=== PATIENT | female | born 1995 | race Caucasian/White ===

== ENCOUNTER 2022-01-20 12:25 | Emergency (ER) | payer MEDICAID, SELFPAY ==
--- NOTE | ~2022-01-20 | US_ITS ---
EXAMINATION: US PELVIS CLINICAL INFORMATION: Vaginal bleeding and pelvic pain COMPARISON: Pelvic ultrasound 03/16/2011 TECHNIQUE: Ultrasound of the pelvis is performed using both transabdominal and transvaginal transducers along with Doppler. Transvaginal imaging is performed due to inadequate visualization transabdominally. FINDINGS: Uterus: The uterus is anteverted and measures 9.3 x 3.8 x 4.9 cm. The double wall endometrial thickness is 6 mm. The uterus is smooth in contour and has normal myometrial echogenicity. No visible fibroid. Adnexa: Both ovaries are visualized. There is normal color flow to the adnexa. There is no ovarian torsion. There is no pelvic ascites or fluid collection. Right ovary measures 2.2 x 1.7 x 1.8 cm. Volume: 4.3 mL Left ovary measures 2.4 x 1.8 x 2 cm. Volume: 4.5 mL. US/US pelvic and transvaginal IMPRESSION: Normal pelvic ultrasound.
[2022-01-20 15:47] VITALS: BP 120/89; PULSE 69; RESP 18; TEMP 37; O2SAT 98; BMI 35.4
--- NOTE | 2022-01-20 17:03 | ED_ITS ---
HPI - Female Genitourinary General Chief complaint: Vaginal Bleeding Stated complaint: vaginal bleeding Time Seen by Provider: 01/20/22 16:55 Source: patient Mode of arrival: ambulatory Limitations: no limitations History of Present Illness HPI Narrative: 26-year-old female came in for evaluation of vaginal bleeding. Symptoms started since yesterday, patient did not have menstruation since her last January 2021, started to have her peroid since yesterday, patient claimed that she has been using multiple pads for heavy vaginal bleeding, patient feeling generalized weakness, no chest pain, no shortness of breath. Patient not sure if she could be or not. No abdominal or pelvic trauma. Related Data Allergies Allergy/AdvReac Type Severity Reaction Status Date / Time shrimp [SHRIMP] Allergy Intermediate FACIAL Verified 01/20/22 15:47 SWELLING Review of Systems Review of Systems: All other systems are reviewed and are negative Constitutional: Reports as per HPI and Reports no additional constitutional complaints Eyes: Reports as per HPI and Reports no additional eye complaints Reports system reviewed and no additional complaints, except as documented Cardiovascular: Reports as per HPI and Reports no additional cardiovascular complaints Respiratory: Reports as per HPI and Reports no additional respiratory complaints Gastrointestinal: Reports as per HPI and Reports no additional gastrointestinal complaints Genitourinary: Reports no additional female genitourinary complaints Musculoskeletal: Reports no additional musculoskeletal complaints Skin/Breast: Reports system reviewed and no additional complaints, except as docu Psychiatric: Reports no additional psychiatric complaints Endocrine: Reports no additional endocrine complaints Hematologic/Lymphatic: Reports no additional hematologic/lymphatic complaints Allergic/Immunologic: Reports no additional allergic/immunologic complaints Reports system reviewed and no additional complaints, except as documented and Reports Abnormal speech present [facility] Social History Social History Advance Directives: No Advance Directives Information Provided: No Physical Exam Vital Signs: Vital Signs: Last Vital Signs Temp 98.6 F 01/20/22 15:47 Pulse 79 01/20/22 19:03 Resp 16 01/20/22 18:55 BP 121/76 01/20/22 19:03 Pulse Ox 100 01/20/22 18:55 BMI result Body Mass Index 35.4 Vital signs have been reviewed as appeared to be correct. Blood pressure normal. Heart rate normal. Respiration rate normal. Temperature normal. Oxygen saturation normal. Appearance: Alert. Oriented X3. No acute distress. Head: Normal external exam. Normocephalic. Atraumatic. No Darden signs noted. No raccoon eyes noted Eyes: PERRLA. EOMI. Conjunctiva and sclera normal. Eyelids normal. ENT: TM's Normal. Pharynx normal. Uvula midline. Moist mucous membranes. No trismus noted. No drooling noted. No muffled voice noted. Neck: Normal inspection. Neck supple. FROM. No adenopathy. Thyroid Normal. No meningeal signs. No neck mass noted. CVS: Normal heart rate and rhythm. Heart sound normal. No murmurs noted. Pulses normal throughout. Respiratory: No respiratory distress. Painless inspiration. Breath sounds normal. No wheezes/rales/rhonchi noted. Chest nontender. No accessory muscle usage noted or decreased air movement noted. Abdomen: Soft and nontender. Bowel sounds normal in all 4 quadrants. No distention noted. No organomegaly noted. No visible injury noted. Pelvic exam: Normal genital inspection, no CMT, no adnexal mass, 5 cc of blood in the vault, no active bleeding or oozing blood. Back: No CVA tenderness. Full range of motion noted. Skin: Skin warm and dry. Normal skin color. Normal skin turgor. No rashes/lesions/lacerations noted. Extremities: No lower extremity edema. Extremities exhibit normal range of motion. Extremities nontender. Neuro: Oriented X 3. Cranial nerve exam: II-XII are grossly intact No motor deficit. No sensory deficit. Reflexes normal. Course Course Course Narrative: Assessment and plan. 26-year-old female came in with heavy menstruation, patient hemodynamically stable, stable hemoglobin, no orthostatic hypotension. ruled out with negative HCG, pelvic ultrasound is unrevealing. Patient was reassured, instructed to drink plenty of fluids, and follow up with her OBGYN. [facility] - Female Genitourinary Lab Data Attestation: I reviewed the patient's lab results. Result diagrams: 01/20/22 18:14 01/20/22 18:14 Labs: Lab Results 01/20/22 01/20/22 01/20/22 Range/Units 17:04 17:04 18:14 WBC 7.3 (4.8-10.8) X10*3/uL RBC 4.35 (4.20-5.50) X10*6/uL Hgb 12.9 (12.0-16.0) g/dl Hct 39.3 (37.0-47.0) % MCV 90.3 (80.0-98.0) fL MCH 29.7 (27.0-33.0) pg MCHC 32.8 (31.0-35.0) g/dl RDW 13.2 (11.0-16.0) % Plt Count 326 (160-400) X10*3/uL MPV 10.2 (9.4-12.3) fL Immature Gran % (Auto) 0.3 (0.0-0.4) % Neut % (Auto) 56.3 (45-73) % Lymph % (Auto) 32.7 (20-40) % [place] % (Auto) 9.2 (2-11) % Eos % (Auto) 1.2 (0-4) % Baso % (Auto) 0.3 (0-2) % Lymph # (Auto) 2.4 (1.2-4.9) X10*3/uL [place] # (Auto) 0.7 (0.1-1.2) X10*3/uL Eos # (Auto) 0.1 (0.0-0.4) X10*3/uL Baso # (Auto) 0.0 (0.0-0.2) X10*3/uL Abs Immat Gran (auto) 0.02 (0.00-0.03) X10*3/uL Absolute Neuts (auto) 4.1 (2.0-8.3) x10*3/uL Absolute Nucleated RBC 0.000 (0.0-0.012) X10*3/uL Nucleated RBC % (auto) 0.0 (0.0-0.2) /100WBC Sodium (135-145) mmol/L Potassium (3.3-5.1) mmol/L Chloride (96-108) mmol/L Carbon Dioxide (22-29) mmol/L Anion Gap (12-20) BUN (9-16) mg/dL Creatinine (0.5-1.4) mg/dL Estim Creat Clear Calc Estimated GFR Random Glucose (60-115) mg/dL Calcium (8.4-10.2) mg/dL Total Bilirubin (0.0-1.0) mg/dL AST (5-31) U/L ALT (0-31) U/L Alkaline Phosphatase (39-117) U/L Total Protein (6.5-8.0) g/dL Albumin (3.5-5.0) g/dL Beta HCG, Quant mIU/mL Urine Color DK YELLOW Urine Appearance HAZY Urine pH 6.0 (5.0-8.0) Ur Specific [place] >= 1.030 H (1.005-1.025) Urine Protein NEG (NEG-TRACE) MG/DL Urine Glucose (UA) NEG (NEG) MG/DL Urine Ketones NEG (NEG) MG/DL Urine Blood 3+ H (NEG) Urine Nitrite NEG (NEG) Ur Leukocyte Esterase NEG (NEG) Urine RBC 15-29 H (0) /HPF Urine WBC 0-2 (0-4) /HPF Ur Squamous Epith Cells 1+ /LPF Amorphous Sediment 1+ /LPF Urine Bacteria NONE /LPF Urine Mucus 2+ /LPF Urine Test NEGATIVE (NEGATIVE) 01/20/22 Range/Units 18:14 WBC (4.8-10.8) X10*3/uL RBC (4.20-5.50) X10*6/uL Hgb (12.0-16.0) g/dl Hct (37.0-47.0) % MCV (80.0-98.0) fL MCH (27.0-33.0) pg MCHC (31.0-35.0) g/dl RDW (11.0-16.0) % Plt Count (160-400) X10*3/uL MPV (9.4-12.3) fL Immature Gran % (Auto) (0.0-0.4) % Neut % (Auto) (45-73) % Lymph % (Auto) (20-40) % [place] % (Auto) (2-11) % Eos % (Auto) (0-4) % Baso % (Auto) (0-2) % Lymph # (Auto) (1.2-4.9) X10*3/uL [place] # (Auto) (0.1-1.2) X10*3/uL Eos # (Auto) (0.0-0.4) X10*3/uL Baso # (Auto) (0.0-0.2) X10*3/uL Abs Immat Gran (auto) (0.00-0.03) X10*3/uL Absolute Neuts (auto) (2.0-8.3) x10*3/uL Absolute Nucleated RBC (0.0-0.012) X10*3/uL Nucleated RBC % (auto) (0.0-0.2) /100WBC Sodium 138 (135-145) mmol/L Potassium 4.0 (3.3-5.1) mmol/L Chloride 105 (96-108) mmol/L Carbon Dioxide 24 (22-29) mmol/L Anion Gap 13 (12-20) BUN 7 L (9-16) mg/dL Creatinine 0.75 (0.5-1.4) mg/dL Estim Creat Clear Calc 123.6 Estimated GFR > 60 Random Glucose 80 (60-115) mg/dL Calcium 9.0 (8.4-10.2) mg/dL Total Bilirubin 0.5 (0.0-1.0) mg/dL AST 30 (5-31) U/L ALT 36 H (0-31) U/L Alkaline Phosphatase 92 (39-117) U/L Total Protein 7.7 (6.5-8.0) g/dL Albumin 4.2 (3.5-5.0) g/dL Beta HCG, Quant < 2 mIU/mL Urine Color Urine Appearance Urine pH (5.0-8.0) Ur Specific [place] (1.005-1.025) Urine Protein (NEG-TRACE) MG/DL Urine Glucose (UA) (NEG) MG/DL Urine Ketones (NEG) MG/DL Urine Blood (NEG) Urine Nitrite (NEG) Ur Leukocyte Esterase (NEG) Urine RBC (0) /HPF Urine WBC (0-4) /HPF Ur Squamous Epith Cells /LPF Amorphous Sediment /LPF Urine Bacteria /LPF Urine Mucus /LPF Urine Test (NEGATIVE) Imaging Data Pelvic ultrasound: Attestation: I personally reviewed and interpreted this imaging study as follows: Radiologist's impression: Normal pelvic ultrasound. Discharge Plan Discharge Clinical Impression: Menometrorrhagia Patient Disposition: Home, Self-Care Instructions: Menorrhagia (ED) Additional Instructions: Drink plenty of fluid, seek immediate medical attention for dizziness, feeling passing out, increased vaginal bleeding more than 10 pads a day or 3 pads an hour. Referrals: [place],[facility] [Primary Care Provider] - 2 days
[2022-01-20 17:11] LABS: Appearance Urine HAZY; Color Urine DK YELLOW; Glucose Urine UA NEG (NEG); Leukocyte Esterase Urine NEG (NEG); Nitrite Urine NEG (NEG); Specific Gravity - Urine >= 1.030 (1.005-1.025); UACC Culture Trigger NO; Urine Blood 3+ (NEG); Urine Ketones NEG (NEG); Urine Protein NEG (NEG-TRACE)
[2022-01-20 17:13] LABS: UPreg QC Valid YES; Urine Pregnancy NEGATIVE (NEGATIVE)
[2022-01-20 17:27] LABS: Amorphous Sediment Urine 1+ /LPF; Mucus Urine 2+ /LPF; Squamous Epithelial Cell Urine 1+ /LPF; WBC Urine 0-2 /HPF (0-4)
[2022-01-20] MEDS: 0.9 % Sodium Chloride 1,000 ML 999 ML IV (18:35)
[2022-01-20 18:37] LABS: MANUAL DIFF FLAG NO
[2022-01-20 18:41] LABS: Basophils Percent Auto 0.3 % (0-2); Eosinophils Absolute Auto 0.1 X10*3/uL (0.0-0.4); Eosinophils Percent Auto 1.2 % (0-4); Hematocrit 39.3 % (37.0-47.0); Hemoglobin 12.9 g/dl (12.0-16.0); Imm Gran Abs Auto 0.02 X10*3/uL (0.00-0.03); Imm Gran Pct Auto 0.3 % (0.0-0.4); Lymphocytes Absolute Auto 2.4 X10*3/uL (1.2-4.9); Lymphocytes Percent Auto 32.7 % (20-40); Mean Corpuscular HGB Conc 32.8 g/dl (31.0-35.0); Mean Corpuscular Hemoglobin 29.7 pg (27.0-33.0); Mean Corpuscular Volume 90.3 fL (80.0-98.0); Mean Platelet Volume 10.2 fL (9.4-12.3); Monocytes Absolute Auto 0.7 X10*3/uL (0.1-1.2); Monocytes Percent Auto 9.2 % (2-11); Neutrophils Absolute Auto 4.1 x10*3/uL (2.0-8.3); Neutrophils Percent Auto 56.3 % (45-73); Platelet Count 326 X10*3/uL (160-400); Red Blood Count 4.35 X10*6/uL (4.20-5.50); Red Cell Distribution Width 13.2 % (11.0-16.0); White Blood Count 7.3 X10*3/uL (4.8-10.8)
[2022-01-20 18:53] LABS: Alanine Aminotransferase 36 U/L (0-31); Albumin Level 4.2 g/dL (3.5-5.0); Alkaline Phosphatase 92 U/L (39-117); Anion Gap 13 (12-20); Aspartate Amino Transferase 30 U/L (5-31); Bilirubin Total 0.5 mg/dL (0.0-1.0); Blood Urea Nitrogen 7 mg/dL (9-16); Carbon Dioxide 24 mmol/L (22-29); Chloride 105 mmol/L (96-108); Creatinine Clr Calc Pharmacy 123.6; Estimated Glomerular Filt Rate > 60; Glucose Random 80 mg/dL (60-115); Sodium 138 mmol/L (135-145); Total Protein 7.7 g/dL (6.5-8.0)
[2022-01-20 18:55] VITALS: BP 116/70; PULSE 76; RESP 16; O2SAT 100
[2022-01-20 19:00] LABS: HCG Quantitative < 2 mIU/mL
[2022-01-20 19:01] VITALS: BP 116/70; PULSE 76
[2022-01-20 19:02] VITALS: BP 123/84; PULSE 82
[2022-01-20 19:03] VITALS: BP 121/76; PULSE 79
[2022-01-20 19:40] VITALS: BP 109/70; PULSE 75; RESP 17; O2SAT 99
== END 2022-01-20 19:57 | disposition home or self-care (01) ==
PROVIDERS: Emergency Provider Emergency Medicine
DX: N92.1 Excessive and frequent menstruation with irregular cycle (principal); N93.9 Abnormal uterine and vaginal bleeding, unspecified; Z79.899 Other long term (current) drug therapy
CPT/HCPCS: 36415; 76830; 76856; 80053; 81001; 81025; 84702; 85025; 96360; 99284

== ENCOUNTER 2022-02-05 06:27 | Emergency (ER) | payer MEDICAID, SELFPAY ==
[2022-02-05 06:31] VITALS: BP 121/86; PULSE 120; RESP 18; TEMP 37.4; O2SAT 96; BMI 34.7
[2022-02-05 07:04] VITALS: BP 116/77; PULSE 109; RESP 14; O2SAT 96
--- NOTE | 2022-02-05 07:47 | ED_ITS ---
HPI - General Adult General Chief complaint: General Medical Stated complaint: sore throat, amoxicilin prescribed not working Time Seen by Provider: 02/05/22 07:46 Source: patient Mode of arrival: ambulatory Limitations: no limitations History of Present Illness HPI narrative: 26 years old female came in for evaluation of sore throat. Patient's symptoms started 3 days ago with sore throat, chills and fever, wo rsening for the past 3 days, patient is been having difficulty swallowing, no voice change. Patient was evaluated and had HHC yesterday and was given amoxicillin. No sick contacts, no recent travel. No abdominal pain. Patient declined any chance of being today. Related Data Previous Rx's Medication Instructions Recorded prednisone 20 mg tablet 20 mg PO BID #6 tab 02/05/22 Allergies Allergy/AdvReac Type Severity Reaction Status Date / Time shrimp [SHRIMP] Allergy Intermediate FACIAL Verified 01/20/22 15:47 SWELLING Review of Systems Review of Systems: All other systems are reviewed and are negative Constitutional: Reports as per HPI and Reports no additional constitutional complaints Eyes: Reports as per HPI and Reports no additional eye complaints Reports system reviewed and no additional complaints, except as documented Cardiovascular: Reports as per HPI and Reports no additional cardiovascular complaints Respiratory: Reports as per HPI and Reports no additional respiratory complaints Gastrointestinal: Reports as per HPI and Reports no additional gastrointestinal complaints Genitourinary: Reports no additional female genitourinary complaints Musculoskeletal: Reports no additional musculoskeletal complaints Skin/Breast: Reports system reviewed and no additional complaints, except as docu Psychiatric: Reports no additional psychiatric complaints Endocrine: Reports no additional endocrine complaints Hematologic/Lymphatic: Reports no additional hematologic/lymphatic complaints Allergic/Immunologic: Reports no additional allergic/immunologic complaints Reports system reviewed and no additional complaints, except as documented and Reports Abnormal speech present [facility] Social History Social History Alcohol intake: current Alcohol intake frequency: holidays/special occasions only Patient Tobacco Use Status: Never used Tobacco Use of substances other than those prescribed or required for medical reasons: No Advance Directives: No Advance Directives Information Provided: Yes Patient : No Physical Exam ED Vital Signs: Vital Signs - 24 hr 02/05/22 06:31 02/05/22 07:04 02/05/22 11:26 Temperature 99.3 F Pulse Rate 120 H 109 H 91 Respiratory Rate 18 14 14 Blood Pressure 121/86 116/77 110/68 Pulse Oximetry 96 96 95 02/05/22 12:24 Temperature Pulse Rate 88 Respiratory Rate 14 Blood Pressure 119/72 Pulse Oximetry 97 BMI result Body Mass Index 34.7 vital signs have been reviewed as appeared to be correct. Blood pressure normal. Heart rate Tachycardiac. Respiration rate normal. Temperature normal. Oxygen saturation normal. Appearance: Alert. Oriented X3. No acute distress. Head: Normal external exam. Normocephalic. Atraumatic. No Darden signs noted. No raccoon eyes noted Eyes: PERRLA. EOMI. Conjunctiva and sclera normal. Eyelids normal. ENT: TM's Normal. Pharynx with erythema, whitish exudate on both tonsils. Uvula midline. Moist mucous membranes. No trismus noted. No drooling noted. No muffled voice noted. Neck: Normal inspection. Neck supple. FROM. No adenopathy. Thyroid Normal. No meningeal signs. No neck mass noted. CVS: Normal heart rate and rhythm. Heart sound normal. No murmurs noted. Pulses normal throughout. Respiratory: No respiratory distress. Painless inspiration. Breath sounds normal. No wheezes/rales/rhonchi noted. Chest nontender. No accessory muscle usage noted or decreased air movement noted. Abdomen: Soft and nontender. Bowel sounds normal in all 4 quadrants. No distention noted. No organomegaly noted. No visible injury noted. Back: No CVA tenderness. Full range of motion noted. Skin: Skin warm and dry. Normal skin color. Normal skin turgor. No rashes/lesions/lacerations noted. Extremities: No lower extremity edema. Extremities exhibit normal range of motion. Extremities nontender. Neuro: Oriented X 3. Cranial nerve exam: II-XII are grossly intact No motor deficit. No sensory deficit. Reflexes normal. Course Course Course Narrative: 26-year-old female came in with sore throat and swelling, patient tested negative for flu/RSV/COVID/mononucleosis/strep pharyngitis. Patient feels better after was given ibuprofen and prednisone. Will start the patient on prednisone for 3 days, also continue with amoxicillin. Medical Decision Making Lab Data Lab results reviewed: Yes I reviewed the patient's lab results. Labs: Lab Results 02/05/22 02/05/22 02/05/22 Range/Units 08:03 08:03 08:03 Monoscreen Negative (Negative) Influenza Type A (PCR) NEGATIVE (Negative) Influenza Type B (PCR) NEGATIVE (Negative) RSV RNA Qual (PCR) NEGATIVE (Negative) SARS-CoV-2 RNA (RT-PCR) NEGATIVE (Negative) S. pyogenes GrpA JIMMY Cancelled 02/05/22 Range/Units 11:50 Monoscreen (Negative) Influenza Type A (PCR) (Negative) Influenza Type B (PCR) (Negative) RSV RNA Qual (PCR) (Negative) SARS-CoV-2 RNA (RT-PCR) (Negative) S. pyogenes GrpA JIMMY Negative Discharge Plan Discharge Clinical Impression: Pharyngitis Patient Disposition: Home, Self-Care Instructions: Pharyngitis (ED) Prescriptions: New prednisone 20 mg tablet 20 mg PO BID Qty: 6 0RF Referrals: [facility] [Primary Care Provider] - 2 days Stand Alone Forms: Work/School Release
[2022-02-05] MEDS: predniSONE 20 MG TABLET 60 MG PO (07:59)
[2022-02-05] MEDS: Ibuprofen 600 MG TABLET PO (07:59)
--- NOTE | 2022-02-05 08:11 | PC.NURSE ---
pt reports 10/10 throat pain. tonsils 4+ touching another with white exudate present. pt reports difficulty swallowing but able to take pills po.
[2022-02-05 09:59] LABS: Influenza A PCR NEGATIVE (Negative); Influenza B PCR NEGATIVE (Negative); Resp Syncy Virus RNA Qual PCR NEGATIVE (Negative); SARS COV2 PCR INHOUSE NEGATIVE (Negative)
[2022-02-05 10:33] LABS: Monotest Negative (Negative)
[2022-02-05 11:26] VITALS: BP 110/68; PULSE 91; RESP 14; O2SAT 95
[2022-02-05 12:24] VITALS: BP 119/72; PULSE 88; RESP 14; O2SAT 97
[2022-02-05 12:31] LABS: Strep A Nucleic Acid Negative (Negative)
== END 2022-02-05 13:38 | disposition home or self-care (01) ==
PROVIDERS: Emergency Provider Emergency Medicine
DX: J02.9 Acute pharyngitis, unspecified (principal); Z20.822 Contact with and (suspected) exposure to COVID-19; F12.90 Cannabis use, unspecified, uncomplicated
CPT/HCPCS: 0241U; 36415; 86308; 87651; 99283; 99284

== ENCOUNTER 2022-02-07 23:05 | Emergency (ER) | payer MEDICAID, SELFPAY ==
--- NOTE | ~2022-02-07 | CT_ITS ---
EXAMINATION: CT SOFT TISSUE NECK WITH CONTRAST CLINICAL INFORMATION: Sore throat. Rule out peritonsillar abscess. COMPARISON: None TECHNIQUE: Following the intravenous administration of 70 mL of Omnipaque 350 intravenous contrast, helical imaging was performed in the axial plane with generation of coronal and sagittal reformatted images. This CT examination was performed using dose optimization techniques as appropriate, variously including the following: *Automated exposure control *Adjustment of mA and/or kV according to patient size (this includes techniques or standardized protocols for targeted exams where dose is matched to indication/reason for exam; i.e. extremities or head) *Use of iterative reconstruction technique DLP: 644 mGy-cm FINDINGS: Prominence of the bilateral palatine tonsils. The airway remains patent. No associated fluid collection. There are prominent cervical lymph nodes bilaterally. For instance there is a node along the left jugular chain measuring 2.3 cm on series 2 image 50. There is a right jugular chain node measuring 2.2 cm on image 48. The parotid glands are homogeneous in attenuation. The submandibular glands are normal. No contour abnormality or pathologic enhancement is seen within the oral cavity or pharyngeal mucosal space. The laryngeal structures are normal. The parapharyngeal fat is preserved. The carotid sheath vasculature opacify normally. No extra mucosal soft tissue mass or fluid collection is seen. No retropharyngeal fluid collection is seen. The thyroid gland is normal. The superior mediastinum is unremarkable. The lung apices are clear. There is a prominent mucous retention cyst of the left maxillary sinus. The mastoid air cells and visualized portions of the paranasal sinuses are otherwise well-aerated. The temporomandibular joints are normal. No periapical disease is identified. No osseous abnormalities are seen. The imaged portions of the brain parenchyma are unremarkable. CT/CT soft tissue neck w con IMPRESSION: Bilateral tonsillar prominence. Cervical lymphadenopathy which is likely reactive. No fluid collection. Patent airway.
[2022-02-07 23:14] VITALS: BP 120/77; PULSE 109; RESP 20; TEMP 39.2; O2SAT 97; BMI 33.6
[2022-02-07] MEDS: Acetaminophen 325 MG TABLET 650 MG PO (23:23)
--- NOTE | 2022-02-07 23:59 | ED.URI ---
HPI - URI/Sore Throat General Chief Complaint: Upper Respiratory Symptoms Stated Complaint: sore throat; ear pain Time Seen by Provider: 02/07/22 23:37 Source: patient Mode of arrival: ambulatory Limitations: no limitations History of Present Illness HPI Narrative: This is a 22 were year old female no significant medical history presenting to the emergency department with 4 days of sore throat, fevers, chills, congestion. Patient is currently on amoxicillin which she started 5 days ago which was prescribed to her by her PCP. She is also taking prednisone. She tells me that despite these medications her symptoms have been worsening. And says she feels horrible. She denies chest pain, shortness of breath, nausea, vomiting, abdominal pain, headache, dizziness, weakness, vision changes, voice changes. Patient has been eating and drinking well. Denies recent sick contacts. MD elicited complaint: fever and sore throat Onset (ago): day(s) (4) Consistency: constant Severity: moderate Able to tolerate fluids by mouth: Yes Exacerbating factors: nothing Relieving factors: nothing Context: sick contacts Associated symptoms: fever and chills Treatments prior to arrival: none Related Data Previous Rx's Medication Instructions Recorded prednisone 20 mg tablet 20 mg PO BID #6 tab 02/05/22 azithromycin 250 mg tablet 250 mg PO DAILY 4 Days #4 tab 02/08/22 (Zithromax) cefuroxime axetil 500 mg tablet 500 mg PO BID 10 Days #20 tab 02/08/22 oxycodone 5 mg capsule 5 mg PO BID PRN #8 cap 02/08/22 Allergies Allergy/AdvReac Type Severity Reaction Status Date / Time shrimp [SHRIMP] Allergy Intermediate FACIAL Verified 01/20/22 15:47 SWELLING Review of Systems Review of Systems: Constitutional : No Weight loss, + Fever, + Chills, + Fatigue, No Malaise ENT/Mouth : + sore throat, No Rhinorrhea Eyes: No Eye Pain, No Swelling, No Redness Cardiovascular : No Chest Pain, No SOB, No Dyspnea on Exertion, No Orthopnea, No Edema, No Palpitations Respiratory : No Cough, No Sputum, No Wheezing Gastrointestinal : No Nausea, No Vomiting, No Diarrhea, No Constipation, No abdominal Pain, No Hematochezia, No Melena Genitourinary : No Dysuria, No Urinary Frequency, No Hematuria, Musculoskeletal : No joint pain, No Myalgias, No Joint Swelling Skin : No Skin Lesions, No rash Neuro : No Weakness, No Numbness, No Dizziness, No Headache Psych : No Anxiety/Panic, No Depression All other systems reviewed and are negative Yes all other systems are reviewed and are negative [facility] Past Medical History Attestation statement: The following information was validated with the patient. Source: old records reviewed and nursing notes reviewed Social History Social History Alcohol intake: current Alcohol intake frequency: holidays/special occasions only Patient Tobacco Use Status: Never used Tobacco Advance Directives: No Physical Exam Vital Signs: Vital Signs: Last Vital Signs Temp 100.2 F 02/08/22 02:09 Pulse 85 02/08/22 02:09 Resp 12 02/08/22 02:09 BP 113/70 02/08/22 02:09 Pulse Ox 96 02/08/22 02:09 BMI result Body Mass Index 33.6 Patient noted to be tachycardic and febrile. Appearance: Alert.? Oriented X3.? No acute distress.? Head: Normocephalic, atraumatic, no step-offs or deformities Eyes: Pupils equal, round and reactive to light.? ENT: + bilateral tonsils erythematous, edematous with exudates. Patient controlling secretions with no muffled voice. Neck: Normal inspection.? Neck supple.? CVS: Normal heart rate and rhythm.? Pulses normal.? Respiratory: No respiratory distress.? Breath sounds normal.? Abdomen: Soft and nontender.? Skin: Skin warm and dry.? Normal skin color.? Normal skin turgor.? Extremities: No lower extremity edema.? No calf ttp. 5/5 strength to bilateral upper and lower extremities Back: No midline tenderness, no C-spine tenderness, full range of motion, no CVA tenderness bilaterally Neuro: Oriented X 3.? No motor deficit.? No sensory deficit. CN 2-12 intact Course Course Course Narrative: I discussed this case w/ . Reevaluation(s) Reevaluation #1: Patient's CBC appears to be around baseline. Patient's potassium is low at 2.9 she will be given 40 of oral potassium and 10 of IV. Flu, COVID/mono negative. Strep negative. Patient will be given Decadron ceftriaxone, Toradol. She will be discharged home with Ceftin and Zithromax. I have given her follow-up with ENT. Advised her to return with new or worsening symptoms. Comfortable w/ discharge. Upon discharge patient is speaking in full sentences, controlling secretions well appears to be no distress. Vital signs stable saturating well on room air. She will follow up with PCP and ent Time: 02:05 MDM - URI/Sore Throat MDM Narrative Medical decision making narrative: 0004 26 yo f presents with sore throat, fevers, chills, malaise, fatigue, congestion x4 days worsening. Patient is currently on amoxicillin and prednisone with little to no relief. Physical exam with exudates, edema and erythema to bilateral tonsils. Plan at this time is flu/COVID/mono/strep. She was given Tylenol for her fever. I will rule out be colitis, peritonsillar abscess, strep pharyngitis. Medical Records Attestation: I reviewed the patient's medical records. Lab Data Attestation: I reviewed the patient's lab results. Result diagrams: 02/08/22 00:18 02/08/22 00:18 Labs: Lab Results 02/08/22 02/08/22 02/08/22 Range/Units 00:18 00:18 00:18 WBC (4.8-10.8) X10*3/uL RBC (4.20-5.50) X10*6/uL Hgb (12.0-16.0) g/dl Hct (37.0-47.0) % MCV (80.0-98.0) fL MCH (27.0-33.0) pg MCHC (31.0-35.0) g/dl RDW (11.0-16.0) % Plt Count (160-400) X10*3/uL MPV (9.4-12.3) fL Immature Gran % (Auto) (0.0-0.4) % Neut % (Auto) (45-73) % Lymph % (Auto) (20-40) % [place] % (Auto) (2-11) % Eos % (Auto) (0-4) % Baso % (Auto) (0-2) % Lymph # (Auto) (1.2-4.9) X10*3/uL [place] # (Auto) (0.1-1.2) X10*3/uL Eos # (Auto) (0.0-0.4) X10*3/uL Baso # (Auto) (0.0-0.2) X10*3/uL Abs Immat Gran (auto) (0.00-0.03) X10*3/uL Absolute Neuts (auto) (2.0-8.3) x10*3/uL Absolute Nucleated RBC (0.0-0.012) X10*3/uL Nucleated RBC % (auto) (0.0-0.2) /100WBC Smear Tech's Comments Sodium (135-145) mmol/L Potassium (3.3-5.1) mmol/L Chloride (96-108) mmol/L Carbon Dioxide (22-29) mmol/L Anion Gap (12-20) BUN (9-16) mg/dL Creatinine (0.5-1.4) mg/dL Estim Creat Clear Calc Estimated GFR Random Glucose (60-115) mg/dL Calcium (8.4-10.2) mg/dL COVID-19 (ANDI) Negative (Negative) COVID-19 Clin Com See Note Monoscreen (Negative) Influenza Type A (JIMMY) Negative (Negative) Influenza Type B (JIMMY) Negative (Negative) Influenza A & B Note See Note S. pyogenes GrpA JIMMY Negative (Negative) 02/08/22 02/08/22 02/08/22 Range/Units 00:18 00:18 00:18 WBC 10.2 (4.8-10.8) X10*3/uL RBC 3.78 L (4.20-5.50) X10*6/uL Hgb 11.2 L (12.0-16.0) g/dl Hct 33.9 L (37.0-47.0) % MCV 89.7 (80.0-98.0) fL MCH 29.6 (27.0-33.0) pg MCHC 33.0 (31.0-35.0) g/dl RDW 14.5 (11.0-16.0) % Plt Count 286 (160-400) X10*3/uL MPV 9.4 (9.4-12.3) fL Immature Gran % (Auto) 0.7 H (0.0-0.4) % Neut % (Auto) 73.9 H (45-73) % Lymph % (Auto) 15.3 L (20-40) % [place] % (Auto) 10.0 (2-11) % Eos % (Auto) 0.0 (0-4) % Baso % (Auto) 0.1 (0-2) % Lymph # (Auto) 1.6 (1.2-4.9) X10*3/uL [place] # (Auto) 1.0 (0.1-1.2) X10*3/uL Eos # (Auto) 0.0 (0.0-0.4) X10*3/uL Baso # (Auto) 0.0 (0.0-0.2) X10*3/uL Abs Immat Gran (auto) 0.07 H (0.00-0.03) X10*3/uL Absolute Neuts (auto) 7.6 (2.0-8.3) x10*3/uL Absolute Nucleated RBC 0.000 (0.0-0.012) X10*3/uL Nucleated RBC % (auto) 0.0 (0.0-0.2) /100WBC Smear Tech's Comments VERIFIED Sodium 137 (135-145) mmol/L Potassium 2.9 L D (3.3-5.1) mmol/L Chloride 101 (96-108) mmol/L Carbon Dioxide 24 (22-29) mmol/L Anion Gap 15 (12-20) BUN 11 D (9-16) mg/dL Creatinine 0.83 (0.5-1.4) mg/dL Estim Creat Clear Calc 108.7 Estimated GFR > 60 Random Glucose 99 (60-115) mg/dL Calcium 8.5 (8.4-10.2) mg/dL COVID-19 (ANDI) (Negative) COVID-19 Clin Com Monoscreen Negative (Negative) Influenza Type A (JIMMY) (Negative) Influenza Type B (JIMMY) (Negative) Influenza A & B Note S. pyogenes GrpA JIMMY (Negative) Critical Care Time Critical Care Time Critical Care Time: No Discharge Plan Discharge Clinical Impression: Acute bacterial tonsillitis, Hypokalemia Patient Disposition: Home, Self-Care Instructions: Tonsillitis (ED) Additional Instructions: Take your medications as prescribed. If you were prescribed antibiotics today, it is important that you take your medication to their entirety, do not skip any doses, do not finish them early. Follow-up with your primary care provider this week. Follow-up with ENT /ears nose and throat as soon as possible. Return to the emergency department with new or worsening symptoms. Such as fevers, chills, chest pain, shortness of breath, nausea, vomiting, dizziness, headache, vision changes, lethargy In case of emergency call 911 To note, your potassium was noted to be low we gave you potassium here today. Please follow-up within the next 2-3 days with your primary care provider for repeat labs. Prescriptions: New cefuroxime axetil 500 mg tablet 500 mg PO BID 10 Days Qty: 20 0RF azithromycin [Zithromax] 250 mg tablet 250 mg PO DAILY 4 Days Qty: 4 0RF Rx Instructions: start on day 2 of therapy oxycodone 5 mg capsule 5 mg PO BID PRN (Reason: pain) Qty: 8 0RF Rx Instructions: Patient can partially filled prescription upon request. No Action prednisone 20 mg tablet 20 mg PO BID Qty: 6 0RF Referrals: [facility] [Primary Care Provider] - 2 days Norberto Henderson [Physician] - 3 days Stand Alone Forms: Work/School Release
[2022-02-08 00:20] VITALS: BP 128/81; PULSE 89; RESP 14; TEMP 38.7; O2SAT 94
[2022-02-08 00:29] LABS: Basophils Percent Auto 0.1 % (0-2); Hematocrit 33.9 % (37.0-47.0); Hemoglobin 11.2 g/dl (12.0-16.0); Imm Gran Abs Auto 0.07 X10*3/uL (0.00-0.03); Imm Gran Pct Auto 0.7 % (0.0-0.4); Lymphocytes Absolute Auto 1.6 X10*3/uL (1.2-4.9); Lymphocytes Percent Auto 15.3 % (20-40); MANUAL DIFF FLAG SCAN; Mean Corpuscular Hemoglobin 29.6 pg (27.0-33.0); Mean Corpuscular Volume 89.7 fL (80.0-98.0); Mean Platelet Volume 9.4 fL (9.4-12.3); Neutrophils Absolute Auto 7.6 x10*3/uL (2.0-8.3); Neutrophils Percent Auto 73.9 % (45-73); Platelet Count 286 X10*3/uL (160-400); Red Blood Count 3.78 X10*6/uL (4.20-5.50); Red Cell Distribution Width 14.5 % (11.0-16.0); SCAN SMEAR FLAG 1; White Blood Count 10.2 X10*3/uL (4.8-10.8)
[2022-02-08 00:40] LABS: IDNOW Serial# 08D9AD1C; Monotest Negative (Negative); Strep A Nucleic Acid Negative (Negative)
[2022-02-08 00:45] LABS: Influenza A Negative (Negative); Influenza B2 Negative (Negative)
[2022-02-08 00:48] LABS: SLIDE REVIEW VERIFIED
[2022-02-08 00:51] LABS: Anion Gap 15 (12-20); Blood Urea Nitrogen 11 mg/dL (9-16); COVID-19 Test Negative (Negative); Calcium 8.5 mg/dL (8.4-10.2); Carbon Dioxide 24 mmol/L (22-29); Chloride 101 mmol/L (96-108); Creatinine Clr Calc Pharmacy 108.7; Estimated Glomerular Filt Rate > 60; Glucose Random 99 mg/dL (60-115); IDNOW Serial# 16C4AD1C; Potassium 2.9 mmol/L (3.3-5.1); Sodium 137 mmol/L (135-145)
[2022-02-08] MEDS: iohexoL 350 MG/ML 100 ML INFUS..BTL 60 ML IV (01:21)
[2022-02-08 02:09] VITALS: BP 113/70; PULSE 85; RESP 12; TEMP 37.9; O2SAT 96
[2022-02-08] MEDS: cefTRIAXone sodium 1 GM in 0.9 % Sodium Chloride 50 ML IV (02:33)
[2022-02-08] MEDS: dexAMETHasone sod phosphate 4 MG/ML VIAL 6 MG IVPUSH (02:36)
[2022-02-08] MEDS: Ketorolac Tromethamine 15 MG/ML VIAL 30 MG IVPUSH (02:40)
[2022-02-08] MEDS: Azithromycin 500 MG TABLET PO (02:42)
[2022-02-08] MEDS: Potassium Chloride ER 20 MEQ TAB.ER.PRT 40 MEQ PO (02:42)
[2022-02-08] MEDS: 0.9 % Sodium Chloride 1,000 ML 999 ML IV (03:17)
[2022-02-08] MEDS: Potassium Chloride/H20 10 MEQ/100 ML PIGGYBACK 100 MEQ IV (03:17)
== END 2022-02-08 04:40 | disposition home or self-care (01) ==
PROVIDERS: Physician Assistant; Emergency Provider Internal Medicine
DX: J02.8 Acute pharyngitis due to other specified organisms (principal); B96.89 Other specified bacterial agents as the cause of diseases classified elsewhere; R05.9 Cough, unspecified; Z79.899 Other long term (current) drug therapy; Z20.822 Contact with and (suspected) exposure to COVID-19
CPT/HCPCS: 36415; 70491; 80048; 85025; 86308; 87502; 87635; 87651; 96365; 96366; 96374; 96375; 96376; 99285; J0696; J1100; J1885; Q9967

== ENCOUNTER 2022-05-07 16:28 | Emergency (ER) | payer MEDICAID, SELFPAY ==
[2022-05-07 16:47] VITALS: BP 111/78; PULSE 87; RESP 18; TEMP 36.3; O2SAT 100; BMI 32.8
--- NOTE | 2022-05-07 17:31 | ED.FEMALEGU ---
HPI - Female Genitourinary General Chief complaint: Urogenital-Female Stated complaint: vaginal pain Time Seen by Provider: 05/07/22 17:31 Source: patient Mode of arrival: ambulatory Limitations: no limitations History of Present Illness HPI Narrative: 26-year-old female presents to the ER for evaluation of a raised bump on her labia for the last 3 days. She is status post [facility]. She had a D&C. After the procedure she had no complications. She reports she has a painful red bump on the outside of her vaginal opening. She reports it is burning and is tender whenever she wipes after urination. She is sexually active with 2 different men, neither which have any known ST ice. She has no vaginal discharge. Her last in sexual intercourse was yesterday with a small amount of pain due to the lesion. MD elicited complaint: genital swelling Onset (ago): day(s) (3) Location of symptoms: external genitalia Severity: mild Vaginal discharge: none Exacerbating factors: none Relieving factors: none Associated symptoms: denies other symptoms Treatment prior to arrival: none Patient : No Related Data Previous Rx's Medication Instructions Recorded prednisone 20 mg tablet 20 mg PO BID #6 tabs 02/05/22 azithromycin 250 mg tablet 250 mg PO DAILY 4 days #4 tabs 02/08/22 (Zithromax) cefuroxime axetil 500 mg tablet 500 mg PO BID 10 days #20 tabs 02/08/22 oxycodone 5 mg capsule 5 mg PO BID PRN pain #8 caps 02/08/22 valacyclovir 1 gram tablet 1,000 mg PO BID #14 tabs 05/07/22 Allergies Allergy/AdvReac Type Severity Reaction Status Date / Time shrimp [SHRIMP] Allergy Intermediate FACIAL Verified 05/07/22 16:47 SWELLING Review of Systems Review of Systems: Constitutional: No Fever, No Chills ENT/Mouth: No sore throat, No Rhinorrhea, No Swallowing Difficulty Cardiovascular: No Chest Pain, No SOB, No Orthopnea, No Edema Respiratory: No Cough, No Sputum, No Wheezing, No dyspnea Gastrointestinal: No Nausea, No Vomiting, No Diarrhea, No abdominal Pain, No Hematochezia, No Melena Genitourinary: No Dysuria, No Urinary Frequency, No Hematuria, +genital lesion Musculoskeletal: No joint pain, No Myalgias Skin: No Skin Lesions, No rash Neuro: No Weakness, No Numbnes Psych: + Anxiety/Panic, No Depression Heme/Lymph: No Bruising, No Lymphadenopathy PMFSH Social History Social History Alcohol intake: current Alcohol intake frequency: a few times a week Alcohol type: hard liquor Patient Tobacco Use Status: Never used Tobacco Substance Use Type: Marijuana Advance Directives: No Advance Directives Information Provided: No Patient : No Physical Exam Vital Signs: Vital Signs: Last Vital Signs Temp 97.3 F 05/07/22 16:47 Pulse 87 05/07/22 16:47 Resp 18 05/07/22 16:47 BP 111/78 05/07/22 16:47 Pulse Ox 100 05/07/22 16:47 O2 Del Method 05/07/22 16:47 BMI result Body Mass Index 32.8 Appearance: Alert. Oriented X3. No acute distress. HEENT: normal inspection CVS: Normal heart rate and rhythm. Pulses normal. Respiratory: No respiratory distress. Skin: Skin warm and dry. Normal skin color. Normal skin turgor. No rashes. : External labia majora and minora are normal in appearance. At the vaginal introitus at around 06:00 o'clock there is a erythematous circular lesion with tenderness and slight yellowing discoloration centrally. Extremities: Normal inspection x4. No inguinal lymphadenopathy appreciated. Neuro: Oriented X 3. Grossly normal, nonfocal Course Course Course Narrative: 26-year-old female presents to the ER with a painful, burning red bump on the lower portion of her external genitalia that she noticed 3 days ago. It hurts when she wipes after urination. Minimal pain at rest. She is sexually active with 2 different men. No known lesions on either of them. She denies any lymphadenopathy or systemic illness. She denies concern for any other STI. She is declining a full pelvic exam or any empiric treatment for other sexually transmitted infections. She is agreeable to HSV culture swab and starting of empiric antiviral medication. [facility]. Discharge Plan Discharge Clinical Impression: Genital lesion, female Patient Disposition: Home, Self-Care Instructions: Genital Herpes Simplex (ED) Additional Instructions: There is concern for possible genital herpes, so your started on antiviral medication. A culture was sent to the lab. It will take few days to get the results. We will call you if the results are positive. Start taking the prescribed antiviral medication 1st thing tomorrow morning. Your given the 1st dose today in the emergency room department. Recommend following up with the [facility] for further STI testing as needed. Prescriptions: New valacyclovir 1 gram tablet 1,000 mg PO BID Qty: 14 0RF No Action prednisone 20 mg tablet 20 mg PO BID Qty: 6 0RF cefuroxime axetil 500 mg tablet 500 mg PO BID 10 Days Qty: 20 0RF azithromycin [Zithromax] 250 mg tablet 250 mg PO DAILY 4 Days Qty: 4 0RF Rx Instructions: start on day 2 of therapy oxycodone 5 mg capsule 5 mg PO BID PRN (Reason: pain) Qty: 8 0RF Rx Instructions: Patient can partially filled prescription upon request.
[2022-05-07] MEDS: valACYclovir HCL 1,000 MG TABLET 1000 MG PO (18:16)
== END 2022-05-07 18:25 | disposition home or self-care (01) ==
PROVIDERS: Physician Assistant; Emergency Provider Emergency Medicine Emergency Medical Services
DX: N89.8 Other specified noninflammatory disorders of vagina (principal); R10.2 Pelvic and perineal pain
CPT/HCPCS: 87255; 99283

== ENCOUNTER 2022-08-12 10:21 | Outpatient (REF) | payer MEDICAID, SELFPAY ==
[2022-08-12 13:35] LABS: MANUAL DIFF FLAG NO
[2022-08-12 13:44] LABS: Basophils Percent Auto 0.4 % (0-2); Eosinophils Absolute Auto 0.1 X10*3/uL (0.0-0.4); Eosinophils Percent Auto 0.7 % (0-4); Hematocrit 40.9 % (37.0-47.0); Hemoglobin 13.4 g/dl (12.0-16.0); Imm Gran Abs Auto 0.01 X10*3/uL (0.00-0.03); Imm Gran Pct Auto 0.1 % (0.0-0.4); Lymphocytes Absolute Auto 1.7 X10*3/uL (1.2-4.9); Lymphocytes Percent Auto 21.3 % (20-40); Mean Corpuscular HGB Conc 32.8 g/dl (31.0-35.0); Mean Corpuscular Hemoglobin 29.1 pg (27.0-33.0); Mean Corpuscular Volume 88.9 fL (80.0-98.0); Mean Platelet Volume 10.2 fL (9.4-12.3); Monocytes Absolute Auto 0.7 X10*3/uL (0.1-1.2); Monocytes Percent Auto 8.1 % (2-11); Neutrophils Absolute Auto 5.7 x10*3/uL (2.0-8.3); Neutrophils Percent Auto 69.4 % (45-73); Platelet Count 320 X10*3/uL (160-400); Red Cell Distribution Width 14.3 % (11.0-16.0); White Blood Count 8.2 X10*3/uL (4.8-10.8)
[2022-08-12 13:59] LABS: Alanine Aminotransferase 22 U/L (0-31); Albumin Level 4.3 g/dL (3.5-5.0); Alkaline Phosphatase 77 U/L (39-117); Anion Gap 16 (12-20); Aspartate Amino Transferase 21 U/L (5-31); Bilirubin Total 0.6 mg/dL (0.0-1.0); Blood Urea Nitrogen 9 mg/dL (9-16); Calcium 9.3 mg/dL (8.4-10.2); Carbon Dioxide 24 mmol/L (22-29); Chloride 105 mmol/L (96-108); Cholesterol 181 mg/dL; Estimated Glomerular Filt Rate > 60; Glucose Fasting 86 mg/dL (60-99); HDL Cholesterol 39 mg/dL; LDL Cholesterol Calculated 122 mg/dl; Potassium 4.6 mmol/L (3.3-5.1); Sodium 140 mmol/L (135-145); Total Protein 7.5 g/dL (6.5-8.0); Triglycerides 100 mg/dL
[2022-08-12 14:18] LABS: Thyroid Stimulating Hormone 0.31 uIU/mL (0.32-4.0)
[2022-08-12 18:15] LABS: CT PCR NOT DETECTED (Not Detect.); NG PCR NOT DETECTED (Not Detect.)
[2022-08-15 00:08] LABS: TS Negative Control Passed; TS Panel A 1; TS Panel B 0; TS Positive Control Passed; TSpotTB Negative (Negative)
== END 2022-08-12 10:22 | disposition home or self-care (01) ==
LOC: HO.10HDL 10:21
PROVIDERS: Visit Provider Internal Medicine
DX: Z00.00 Encounter for general adult medical examination without abnormal findings (principal); Z11.3 Encounter for screening for infections with a predominantly sexual mode of transmission; Z11.1 Encounter for screening for respiratory tuberculosis; B37.3 Candidiasis of vulva and vagina
CPT/HCPCS: 80053; 80061; 84443; 85025; 86481; 87491; 87591

== ENCOUNTER 2022-09-22 11:28 | Outpatient (REF) | payer MEDICAID, SELFPAY ==
[2022-09-23 07:59] LABS: Syphilis Screen Nonreactive (Nonreactive)
[2022-09-23 11:11] LABS: Herpes Simplex Type 1 IgG <0.90 index
[2022-09-24 11:32] LABS: CT PCR NOT DETECTED (Not Detect.); NG PCR NOT DETECTED (Not Detect.)
== END 2022-09-22 11:29 | disposition home or self-care (01) ==
LOC: HO.10HDL 11:28
PROVIDERS: Visit Provider Internal Medicine
DX: Z00.00 Encounter for general adult medical examination without abnormal findings (principal); Z11.3 Encounter for screening for infections with a predominantly sexual mode of transmission; B37.31 Acute candidiasis of vulva and vagina
CPT/HCPCS: 86695; 86696; 86780; 87491; 87591

== ENCOUNTER 2023-08-12 09:27 | Outpatient (REF) | payer MEDICAID, SELFPAY ==
[2023-08-12 10:43] LABS: MANUAL DIFF FLAG NO
[2023-08-12 10:52] LABS: Basophils Percent Auto 0.4 % (0-2); Eosinophils Percent Auto 0.5 % (0-4); Hematocrit 38.6 % (37.0-47.0); Hemoglobin 12.7 g/dl (12.0-16.0); Imm Gran Abs Auto 0.02 X10*3/uL (0.00-0.03); Imm Gran Pct Auto 0.3 % (0.0-0.4); Lymphocytes Absolute Auto 1.8 X10*3/uL (1.2-4.9); Lymphocytes Percent Auto 22.2 % (20-40); Mean Corpuscular HGB Conc 32.9 g/dl (31.0-35.0); Mean Corpuscular Hemoglobin 30.2 pg (27.0-33.0); Mean Corpuscular Volume 91.7 fL (80.0-98.0); Mean Platelet Volume 10.5 fL (9.4-12.3); Monocytes Absolute Auto 0.4 X10*3/uL (0.1-1.2); Monocytes Percent Auto 5.5 % (2-11); Neutrophils Absolute Auto 5.7 x10*3/uL (2.0-8.3); Neutrophils Percent Auto 71.1 % (45-73); Platelet Count 299 X10*3/uL (160-400); Red Blood Count 4.21 X10*6/uL (4.20-5.50); Red Cell Distribution Width 13.4 % (11.0-16.0)
[2023-08-12 11:01] LABS: Alanine Aminotransferase 15 U/L (0-31); Albumin Level 4.1 g/dL (3.5-5.0); Alkaline Phosphatase 72 U/L (39-117); Anion Gap 13 (12-20); Aspartate Amino Transferase 16 U/L (5-31); Bilirubin Total 0.5 mg/dL (0.0-1.0); Blood Urea Nitrogen 8 mg/dL (9-16); Calcium 9.1 mg/dL (8.4-10.2); Carbon Dioxide 26 mmol/L (22-29); Chloride 105 mmol/L (96-108); Estimated Glomerular Filt Rate > 60; Glucose Random 103 mg/dL (60-115); Potassium 3.9 mmol/L (3.3-5.1); Sodium 140 mmol/L (135-145); Total Protein 6.9 g/dL (6.5-8.0)
[2023-08-12 15:47] LABS: CT PCR NOT DETECTED (Not Detect.); NG PCR NOT DETECTED (Not Detect.)
[2023-08-14 16:28] LABS: TS Negative Control Passed; TS Panel A 0; TS Panel B 0; TS Positive Control Passed; TSpotTB Negative (Negative)
== END 2023-08-12 09:28 | disposition home or self-care (01) ==
LOC: HO.10HDL 09:27
PROVIDERS: Visit Provider Internal Medicine
DX: Z00.00 Encounter for general adult medical examination without abnormal findings (principal); M54.50 Low back pain, unspecified; Z11.3 Encounter for screening for infections with a predominantly sexual mode of transmission
CPT/HCPCS: 0353U; 80053; 85025; 86481

== ENCOUNTER 2024-03-02 15:04 | Emergency (ER) | payer MEDICAID, SELFPAY ==
--- NOTE | ~2024-03-02 | US_ITS ---
EXAMINATION: US OBSTETRICAL ULTRASOUND CLINICAL INFORMATION: , vaginal spotting and cramping. COMPARISON: Pelvic ultrasound 01/20/2022. LMP: 01/29/2024. Gestational age by maternal dates is 4 weeks and 5 days. Estimated date of delivery by maternal dates is 11/04/2024. TECHNIQUE: Transabdominal and transvaginal images obtained with the patient's consent. FINDINGS: Anteverted uterus measuring 8.1 x 4.5 x 5.5 cm. There is a small approximately up to 0.6 cm anechoic focus in the upper endometrial canal that could represent an early gestational sac. Otherwise, normal appearance of the uterus. The right ovary measures 3.6 x 1.9 x 2.1 cm. The left ovary was only visualized transabdominally measuring approximately 2.7 x 1.4 x 1.3 cm. There is preserved color flow to both ovaries at the moment of this examination. No discrete adnexal mass. No free fluid. US/US OB <= 14 weeks fetus IMPRESSION: Small anechoic pocket in the endometrial canal measuring up to 0.6 cm that could potentially represent a very early gestational sac. Recommend correlation with quantitative hCG and close attention on follow-up. No adnexal mass. No free fluid.
--- NOTE | 2024-03-02 15:21 | ED_ITS ---
HPI - General Chief complaint: Vaginal Bleeding Stated complaint: eptopic ? Time Seen by Provider: 03/02/24 17:32 Source: patient, RN notes reviewed and old records reviewed Mode of arrival: ambulatory Limitations: no limitations History of Present Illness HPI Narrative: 28-year-old female presents for evaluation of lower back pain. Patient reports that she had a positive home test earlier today. [facility] ?did not show anything. ? 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 are related to her work Denies any lower abdominal or pelvic pain Denies any burning with urination, vaginal bleeding or discharge No other complaints or concerns at this time Related Data Previous Rx's ?Medication ?Instructions ?Recorded prednisone 20 mg tablet 20 mg PO BID #6 tabs 02/05/22 azithromycin 250 mg tablet 250 mg PO DAILY 4 days #4 tabs 02/08/22 (Zithromax) cefuroxime axetil 500 mg tablet 500 mg PO BID 10 days #20 tabs 02/08/22 oxycodone 5 mg capsule 5 mg PO BID PRN pain #8 caps 02/08/22 valacyclovir 1 gram tablet 1,000 mg PO BID #14 tabs 05/07/22 Allergies Allergy/AdvReac Type Severity Reaction Status Date / Time shrimp [SHRIMP] Allergy Intermediate FACIAL Verified 03/02/24 15:27 SWELLING Review of Systems 2 Constitutional: Constitutional: Denies body ache(s), Denies chills and Denies fever(s) ENT: Denies sore throat Cardiovascular: Cardiovascular: Denies chest pain and Denies dyspnea Respiratory: Respiratory: Denies cough and Denies dyspnea Gastrointestinal: Gastrointestinal: Denies abdominal pain, Denies nausea and Denies vomiting Musculoskeletal: Musculoskeletal: Reports back pain Integumentary/Breasts: Skin/Breast: Denies rash Psychiatric: Psychiatric: Denies anxiety [facility] Social History Social History Alcohol intake: current Alcohol intake frequency: a few times a week Alcohol type: hard liquor Patient Tobacco Use Status: Never used Tobacco Substance Use Type: Marijuana Advance Directives: No Advance Directives Information Provided: No Physical Exam 2 Vital Signs: Vital Signs: Last Vital Signs Temp 97.8 F 03/02/24 15:22 Pulse 85 03/02/24 15:22 Resp 18 03/02/24 15:22 BP 138/96 H 03/02/24 15:22 Pulse Ox 96 03/02/24 15:22 O2 Del Method Room Air 03/02/24 15:22 BMI result Body Mass Index 31.4 Const: General: healthy appearing, comfortable, no acute distress, alert and awake Nutritional Appearance: well nourished Orientation/consciousness: p atient oriented x3 HEENT: Head: Yes normocephalic and Yes atraumatic Eyes: Eyelids: Yes eyelids normal Conjunctivae: conjunctivae normal S clerae: sclerae normal Corneas: corneas normal Pupils: Equal, round and reactive pupils present EOM: EOMs intact bilaterally Neck: Neck: Yes full ROM Resp: Effort & Inspection: normal respiratory effort, able to speak in complete sentences, no audible wheezes and not labored GI: Inspection: No distended Palpation (GI): Soft to palpation, not firm, nontender, no guarding and not rigid Back/Spine/Pelvis: Other: Mild tenderness across the lumbar paraspinous region. No vertebral tenderness, no step-offs or deformities. Skin: General skin exam: elasticity normal Neuro: General: patient oriented x3 Cranial nerves: Yes Equal, round and reactive pupils present and Yes Bilaterally intact EOM present Cognition (Neuro): normal cognition Course Course Course Narrative: This is a Rapid Medical Examination (RME) in triage, full HPI, ROS, assessment and plan per primary provider in the Main ED. 28 yo female who is currently in the early stage of (LMP 3/9 but was very light) who [facility] evaluation of low back pain, vaginal spotting and cramping. Had ultrasound done there that did not any intrauterine . Sent to the ER for further evaluation. She does not have an burnisher Plan: beta HCG quant, pelvic U/S Medical Decision Making Medical Decision Making MDM Narrative: 28-year-old female presents for evaluation lower back pain and positive test. She had an ultrasound performed that shows a questionable early gestational sac in the endometrial canal. There was no evidence of ectopic of the spine. The patient's serum hCG is very low at 103. I recommend the patient return in 3-4 days for repeat hCG to assess for trending. The patient's blood type is A positive, she has no indication for RhoGAM. All questions were answered. The patient's pain is reproducible on exam and may related to muscle spasms in her back Differential Diagnosis Differential Diagnoses: The differential diagnosis associated with the presentation includes Muscle strain Back pain UTI Ectopic Lab Data MDM Lab Attestation statement: I reviewed the patient's lab results. No leukocytosis. Patient's hemoglobin within normal limits, hematocrit just below normal at 35.5. Normal platelet count. No electrolyte abnormalities. Serum hCG of 103 03/02/24 16:02 03/02/24 16:02 Labs: Lab Results 03/02/24 Range/Units 16:02 WBC 9.7 (4.8-10.8) X10*3/uL RBC 4.09 L (4.20-5.50) X10*6/uL Hgb 12.0 (12.0-16.0) g/dl Hct 35.5 L (37.0-47.0) % MCV 86.8 (80.0-98.0) fL MCH 29.3 (27.0-33.0) pg MCHC 33.8 (31.0-35.0) g/dl RDW 13.6 (11.0-16.0) % Plt Count 325 (160-400) X10*3/uL MPV 9.4 (9.4-12.3) fL Immature Gran % (Auto) 0.3 (0.0-0.4) % Neut % (Auto) 68.9 (45-73) % Lymph % (Auto) 23.7 (20-40) % [place] % (Auto) 6.5 (2-11) % Eos % (Auto) 0.4 (0-4) % Baso % (Auto) 0.2 (0-2) % Lymph # (Auto) 2.3 (1.2-4.9) X10*3/uL [place] # (Auto) 0.6 (0.1-1.2) X10*3/uL Eos # (Auto) 0.0 (0.0-0.4) X10*3/uL Baso # (Auto) 0.0 (0.0-0.2) X10*3/uL Abs Immat Gran (auto) 0.03 (0.00-0.03) X10*3/uL Absolute Neuts (auto) 6.7 (2.0-8.3) x10*3/uL Absolute Nucleated RBC 0.000 (0.0-0.012) X10*3/uL Nucleated RBC % (auto) 0.0 (0.0-0.2) /100WBC Sodium 138 (135-145) mmol/L Potassium 3.5 (3.3-5.1) mmol/L Chloride 107 (96-108) mmol/L Carbon Dioxide 26 (22-29) mmol/L Anion Gap 9 L (12-20) BUN 7 L (9-16) mg/dL Creatinine 0.73 (0.5-1.4) mg/dL Estim Creat Clear Calc 117.1 Estimated GFR > 60 Random Glucose 92 (60-115) mg/dL Calcium 9.0 (8.4-10.2) mg/dL Magnesium 1.8 (1.6-2.6) mg/dL Total Bilirubin 0.4 (0.0-1.0) mg/dL Direct Bilirubin 0.1 (0.0-0.5) mg/dL AST 16 (5-31) U/L ALT 16 (0-31) U/L Alkaline Phosphatase 83 (39-117) U/L Total Protein 7.7 (6.5-8.0) g/dL Albumin 4.1 (3.5-5.0) g/dL Beta HCG, Quant 103 mIU/mL Blood Type A Positive Radiology Impression Discussion of test interpretation with radiology: I have reviewed the radiologist's reading. Radiologist Impression: Possible intrauterine in the endometrial canal Discharge Plan Discharge Clinical Impression: at early stage Patient Disposition: Home, Self-Care Instructions: (ED) Additional Instructions: Your workup in the ER today was reassuring. Your ultrasound shows a possible very early intrauterine gestation. I recommend repeat serum hCG in at least 4 days to ensure that it is trending upwards Return sooner if he experiencing severe lower abdominal pain or heavy bleeding I recommend that you start taking vitamins daily Prescriptions: No Action prednisone 20 mg tablet 20 mg PO BID Qty: 6 0RF cefuroxime axetil 500 mg tablet 500 mg PO BID 10 Days Qty: 20 0RF azithromycin [Zithromax] 250 mg tablet 250 mg PO DAILY 4 Days Qty: 4 0RF Rx Instructions: start on day 2 of therapy oxycodone 5 mg capsule 5 mg PO BID PRN (Reason: pain) Qty: 8 0RF Rx Instructions: Patient can partially filled prescription upon request. valacyclovir 1 gram tablet 1,000 mg PO BID Qty: 14 0RF Stand Alone Forms: Work/School Release Print Language: Chinese
[2024-03-02 15:22] VITALS: BP 138/96; PULSE 85; RESP 18; TEMP 36.6; O2SAT 96; BMI 31.4
[2024-03-02 16:07] LABS: MANUAL DIFF FLAG NO
[2024-03-02 16:08] LABS: Basophils Percent Auto 0.2 % (0-2); Eosinophils Percent Auto 0.4 % (0-4); Hematocrit 35.5 % (37.0-47.0); Imm Gran Abs Auto 0.03 X10*3/uL (0.00-0.03); Imm Gran Pct Auto 0.3 % (0.0-0.4); Lymphocytes Absolute Auto 2.3 X10*3/uL (1.2-4.9); Lymphocytes Percent Auto 23.7 % (20-40); Mean Corpuscular HGB Conc 33.8 g/dl (31.0-35.0); Mean Corpuscular Hemoglobin 29.3 pg (27.0-33.0); Mean Corpuscular Volume 86.8 fL (80.0-98.0); Mean Platelet Volume 9.4 fL (9.4-12.3); Monocytes Absolute Auto 0.6 X10*3/uL (0.1-1.2); Monocytes Percent Auto 6.5 % (2-11); Neutrophils Absolute Auto 6.7 x10*3/uL (2.0-8.3); Neutrophils Percent Auto 68.9 % (45-73); Platelet Count 325 X10*3/uL (160-400); Red Blood Count 4.09 X10*6/uL (4.20-5.50); Red Cell Distribution Width 13.6 % (11.0-16.0); White Blood Count 9.7 X10*3/uL (4.8-10.8)
[2024-03-02 16:25] LABS: Alanine Aminotransferase 16 U/L (0-31); Albumin Level 4.1 g/dL (3.5-5.0); Alkaline Phosphatase 83 U/L (39-117); Anion Gap 9 (12-20); Aspartate Amino Transferase 16 U/L (5-31); Bilirubin Direct 0.1 mg/dL (0.0-0.5); Bilirubin Total 0.4 mg/dL (0.0-1.0); Blood Urea Nitrogen 7 mg/dL (9-16); Carbon Dioxide 26 mmol/L (22-29); Chloride 107 mmol/L (96-108); Creatinine Clr Calc Pharmacy 117.1; Estimated Glomerular Filt Rate > 60; Glucose Random 92 mg/dL (60-115); Magnesium 1.8 mg/dL (1.6-2.6); Potassium 3.5 mmol/L (3.3-5.1); Sodium 138 mmol/L (135-145); Total Protein 7.7 g/dL (6.5-8.0)
[2024-03-02 16:31] LABS: HCG Quantitative 103 mIU/mL
--- OUTSIDE RECORDS SUMMARY | 2024-03-02 17:50 | XMS_ITS | Continuity of Care Document ---
Author Organization [facility] ter Address [address] [place] [address]- Care Team Providers Care Signals Collection Technician Name Role Phone Not on Staff, PCP Primary Care Physician Unavail able [place] [facility] [place] 02/10/22 - 02/11/[address] [address]- Encounter Diagnosis Tonsillitis(Final) - 02/11/22 Discharge Disposition: A-D/C Home Attending Physician: Ravi Patten DO Admitting Physician: Ravi Patten DO Referring Physician: Not on Staff, Referring MD Allergies, Adverse Reactions, Alerts Substance Reaction Severity Status Shrimp Active Medications clindamycin 300 mg oral capsule 1 capsule = 300 mg, By Mouth, Every 6 hours, # 28 capsule, 0 Refills, Maintenance, 02/11/22 0:51:00EDT, Capsule, [id number], Partial fill upon patient request if the prescription is for a schedule II opioid drug., 80.6, kg, 07/30/20 15:27:00... Start Date: 02/11/22 Stop Date: 02/18/22 Status: Ordered MorPHINE Inj 2 mg, Injection, IV Push Slowly, Once, STAT, 02/11/22 0:45:00 EDT, Stop date 02/11/22 0:45:00 EDT Start Date: 02/11/22 Stop Date: 02/11/22 Status: Completed oxyCODONE 5 mg oral tablet 5 mg, 1, tablet, By Mouth, Every 6 hours, PRN, # 7 tablet, Refills 0, Tot. Refills 0, Maintenance, Pain, 02/11/22 1:02:00 EDT, Route to Pharmacy Electronically, [id number], Partial fill upon patient request if the prescription is for a schedul... Start Date: 02/11/22 Status: Ordered predniSONE 20 mg oral tablet 1 tablet = 20 mg, By Mouth, Daily, # 5 tablet, 0 Refills, Maintenance, 02/11/22 0:51:00 EDT, Tablet, [id number], Partial fill upon patient request if the prescription is for a schedule II opioid drug., 80.6, kg, 07/30/20 15:27:00 EDT, Dry Weight Start Date: 02/11/22 Stop Date: 02/16/22 Status: Ordered Multivitamin Tablet 0 Refills, Maintenance, 07/30/20 16:05:00 EDT Start Date: 07/30/20 Status: Ordered Results Orders for Microbiology Reports Name Date Group A Strep Screen and Culture 02/10/22 Microbiology Reports TEST:Group A Strep Screen and Culture STATUS:Unauthenticated BODY SITE: SOURCE:THROAT COLLECTED DATE/TIME:02/10/22 10:00 PM Group A Strep Screen and Culture SPECIMEN DESCRIPTION : THROAT SWAB SPECIAL REQUESTS : NONE DIRECT EXAM : RAPID GROUP A RESULT IS NEGATIVE, REFER TO CULTURE RESULT. REPORT STATUS : PRELIMINARY REPORT Vital Signs Most recent to oldest [Reference Range]: 1 2 Oxygen Saturation [94-100 %] 98 % (02/10/22 8:21 PM) 96 % (02/10/22 8:12 PM) Pulse Rate [55-90 bpm] 105 bpm *H* (02/10/22 8:21 PM) 115 bpm *H* (02/10/22 8:12 PM) Blood Pressure [90-138/55-84 mm Hg] 120/ 79mm Hg (02/10/22 8:21 PM) Respiratory Rate [16-30 br/min] 18 br/mi n (02/11/22 12:47 AM) 18 br/min (02/10/22 8:21 PM) Temperature [96.8-100.4 DegF] 98.8 DegF (02/10/22 8:21 PM) Mode of Delivery (Oxygen) Room air (02/10/22 8:21 PM) Room air (02/10/22 8:12 PM) Blood pressure sites Arm, right (02/10/22 8:21 PM) Temperature Route Oral (02/10/22 8:21 PM) Social History Social History Type Response Smoking Status Never (less than 100 in lifetime) entered on: 07/30/20 Sex
--- OUTSIDE RECORDS SUMMARY | 2024-03-02 17:50 | XMS_ITS | Continuity of Care Document ---
Author Organization [facility] Address [address] [place] [address]- Care Team Providers Care Behavioral Health Therapist Name Role Phone Sana Vargas Primary Care Physician Encounter [facility] Date(s): 06/11/20 - 07/11/20 [facility] [address] [address]- [facility] Attending Physician: Teri Sena Admitting Physician: Teri Sena Referring Physician: Teri Sena
--- OUTSIDE RECORDS SUMMARY | 2024-03-02 17:50 | XMS_ITS | Continuity of Care Document ---
Author Organization [facility] ter Address [address] [place] [address]- Care Team Providers Care Shotgun Shell Assembly Machine Operator Name Role Phone Samuel MCDANIEL, Sonny Davis Primary Care Physician Encounter [facility] Date(s): 03/18/21 - 04/25/[address] [address] Attending Physician: Naa Del Toro CNM Admitting Physician: Naa Del Toro CNM Referring Physician: Naa Del Toro CNM Allergies, Adverse Reactions, Alerts Substance Reaction Severity Status Shrimp Active Medications Multivitamin Tablet 0 Refills, Maintenance, 07/30/20 16:05:00 EDT Start Date: 07/30/20 Status: Ordered Social History Social History Type Response Smoking Status Never (less than 100 in lifetime) entered on: 07/30/20 Sex
--- OUTSIDE RECORDS SUMMARY | 2024-03-02 17:50 | XMS_ITS | Continuity of Care Document ---
Author Organization [facility] Address [address] [place] [address]- Care Team Providers Care Vault Maker Name Role Phone Samuel MCDANIEL, Sonny Davis Primary Care Physician Encounter [facility] Date(s): 10/04/20 - 11/03/20 [facility] [address] [place] [id number] Allergies, Adverse Reactions, Alerts Substance Reaction Severity Status Shrimp Active Medications Multivitamin Tablet 0 Refills, Maintenance, 07/30/20 16:05:00 EDT Start Date: 07/30/20 Status: Ordered Social History Social History Type Response Smoking Status Never (less than 100 in lifetime) entered on: 07/30/20 Sex
--- OUTSIDE RECORDS SUMMARY | 2024-03-02 17:50 | XMS_ITS | Continuity of Care Document ---
Author Organization [facility] ter Address [address] [place] [address]- Care Team Providers Care Hematology Technician Name Role Phone Sana Vargas Primary Care Physician Encounter [facility] Date(s): 07/30/20 - 07/30/[address] [address]- [facility] Discharge Disposition: A-D/C Walkout Attending Physician: Not on Staff, Attending MD Admitting Physician: Not on Staff, Admitting MD Referring Physician: Not on Staff, Referring MD
--- OUTSIDE RECORDS SUMMARY | 2024-03-02 17:50 | XMS_ITS | Continuity of Care Document ---
Author Organization [facility] Address [address] [place] [address]- Care Team Providers Care Curer Foam Rubber Name Role Phone Samuel MCDANIEL, Sonny Davis Primary Care Physician [place] [facility] [place](s): 10/04/20 - 11/03/20 [facility] [address] [place] [address] [place] Allergies, Adverse Reactions, Alerts Substance Reaction Severity Status Shrimp Active Medications Multivitamin Tablet 0 Refills, Maintenance, 07/30/20 16:05:00 EDT Start Date: 07/30/20 Status: Ordered Social History Social History Type Response Smoking Status Never (less than 100 in lifetime) entered on: 07/30/20 Sex
--- OUTSIDE RECORDS SUMMARY | 2024-03-02 17:50 | XMS_ITS | Continuity of Care Document ---
Author Organization [facility] Address [address] [place] [address]- Care Team Providers Care Casing Fluid Tender Name Role Phone Sana Vargas Primary Care Physician Encounter [facility] Date(s): 06/19/20 - 07/19/[facility] [address] [place] [address]- [facility]
--- OUTSIDE RECORDS SUMMARY | 2024-03-02 17:50 | XMS_ITS | Continuity of Care Document ---
Author Organization [facility] ter Address [address] [place] [address]- Care Team Providers Care Donor Recruiter Name Role Phone Samuel MCDANIEL, Sonny Davis Primary Care Physician [place] [facility] [place](s): 10/05/20 - 11/10/[address] [address] [place] Attending Physician: Krystyna Woody CNM Admitting Physician: Krystyna Woody CNM Referring Physician: Krystyna Woody CNM Allergies, Adverse Reactions, Alerts Substance Reaction Severity Status Shrimp Active Medications Multivitamin Tablet 0 Refills, Maintenance, 07/30/20 16:05:00 EDT Start Date: 07/30/20 Status: Ordered Social History Social History Type Response Smoking Status Never (less than 100 in lifetime) entered on: 07/30/20 Sex
--- OUTSIDE RECORDS SUMMARY | 2024-03-02 17:50 | XMS_ITS | Continuity of Care Document ---
Author Organization [facility] Address [address] [place] [address]- Care Team Providers Care Mobile Application Architect Name Role Phone Samuel MCDANIEL, Sonny Davis Primary Care Physician [place] [facility] [place] - 11/02/20 [facility] [address] [place] [address] Allergies, Adverse Reactions, Alerts Substance Reaction Severity Status Shrimp Active Medications Multivitamin Tablet 0 Refills, Maintenance, 07/30/20 16:05:00 EDT Start Date: 07/30/20 Status: Ordered Social History Social History Type Response Smoking Status Never (less than 100 in lifetime) entered on: 07/30/20 Sex
--- OUTSIDE RECORDS SUMMARY | 2024-03-02 17:50 | XMS_ITS | Continuity of Care Document ---
Author Organization [facility] ter Address [address] [place] [address]- Care Team Providers Care Care Manager Cna Name Role Phone Samuel MCDANIEL, Sonny Davis Primary Care Physician [place] [facility] [place] 11/24/[address] [address] Attending Physician: Krystyna Woody CNM Admitting Physician: [...]
--- OUTSIDE RECORDS SUMMARY | 2024-03-02 17:50 | XMS_ITS | Continuity of Care Document ---
Author Organization [facility] ter Address [address] [place] [address]- Care Team Providers Care Retail Store Associate Name Role Phone Sonny Baker MD Primary Care Physician Encounter [facility] [place] Date(s): 07/30/20 - 07/30/[address] [address]- [facility] Discharge Disposition: A-D/C Home Attending Physician: Radha Chen MD Admitting Physician: Radha Chen MD Referring Physician: Radha Chen MD Allergies, Adverse Reactions, Alerts Substance Reaction Severity Status Shrimp Active Medications Multivitamin Tablet 0 Refills, Maintenance, 07/30/20 16:05:00 EDT Start Date: 07/30/20 Status: Ordered Procedures Procedure Date Related Diagnosis Body Site Status [place] tooth Completed Vital Signs Most recent to oldest [Reference Range]: 1 Weight 80.6 kg (07/30/20 3:27 PM) Oxygen Saturation [94-100 %] 100 % (07/30/20 3:27 PM) Pulse Rate [55-90 bpm] 83 bpm (07/30/20 3:27 PM) Blood Pressure [90-138/55-84 mm Hg] 111/ 80mm Hg (07/30/20 3:27 PM) Respiratory Rate [16-30 br/min] 18 br/mi n (07/30/20 3:27 PM) Temperature [96.8-100.4 DegF] 98.2 DegF (07/30/20 3:27 PM) Mode of Delivery (Oxygen) Room air (07/30/20 3:27 PM) Blood pressure sites Arm, right 1 (07/30/20 3:27 PM) Temperature Route Oral (07/30/20 3:27 PM) Dry Weight 80.6 kg (07/30/20 3:27 PM) Weight Obtained Via Standing scale (07/30/20 3:27 PM) Dry Weight Obtained Via Standing scale (07/30/20 3:27 PM) 1Result Comment: right upper arm meausred 30.5 cm Social History Social History Type Response Smoking Status Never (less than 100 in lifetime) entered on: 07/30/20 Sex
--- OUTSIDE RECORDS SUMMARY | 2024-03-02 17:50 | XMS_ITS | Continuity of Care Document ---
Author Organization [facility] Address [address] [place] [address]- Care Team Providers Care Machine Veneer Repairer Name Role Phone Samuel MCDANIEL, Sonny Davis Primary Care Physician [place] [facility] [place] 10[place] - 11/03/20 [facility] [address] [place] [address] Attending Physician: Teri Sena Admitting Physician: Teri Sena Referring Physician: trTeri Allergies, Adverse Reactions, Alerts Substance Reaction Severity Status Shrimp Active Medications Multivitamin Tablet 0 Refills, Maintenance, 07/30/20 16:05:00 EDT Start Date: 07/30/20 Status: Ordered Social History Social History Type Response Smoking Status Never (less than 100 in lifetime) entered on: 07/30/20 Sex
--- NOTE | 2024-03-02 17:56 | MHC.EDTECH ---
Second blood bank not needed per [place]
[2024-03-02 18:18] VITALS: BP 120/75; PULSE 71; RESP 16; TEMP 36.9; O2SAT 98
== END 2024-03-02 18:19 | disposition home or self-care (01) ==
PROVIDERS: Physician Assistant; Emergency Provider Internal Medicine; PCP Internal Medicine
DX: O26.91 Pregnancy related conditions, unspecified, first trimester (principal); R10.2 Pelvic and perineal pain; M54.50 Low back pain, unspecified; Z3A.01 Less than 8 weeks gestation of pregnancy; Z79.899 Other long term (current) drug therapy
CPT/HCPCS: 36415; 76801; 80048; 80076; 83735; 84702; 85025; 86900; 86901; 99282; 99284

== ENCOUNTER 2024-10-24 09:30 | Outpatient (REF) | payer MEDICAID, SELFPAY ==
[2024-10-24 11:10] LABS: MANUAL DIFF FLAG NO
[2024-10-24 11:11] LABS: Basophils Absolute Auto 0.1 X10*3/uL (0.0-0.2); Basophils Percent Auto 0.5 % (0-2); Eosinophils Absolute Auto 0.1 X10*3/uL (0.0-0.4); Eosinophils Percent Auto 0.9 % (0-4); Hematocrit 37.4 % (37.0-47.0); Hemoglobin 12.5 g/dl (12.0-16.0); Imm Gran Abs Auto 0.04 X10*3/uL (0.00-0.03); Imm Gran Pct Auto 0.4 % (0.0-0.4); Lymphocytes Absolute Auto 1.9 X10*3/uL (1.2-4.9); Lymphocytes Percent Auto 20.2 % (20-40); Mean Corpuscular HGB Conc 33.4 g/dl (31.0-35.0); Mean Corpuscular Hemoglobin 29.6 pg (27.0-33.0); Mean Corpuscular Volume 88.4 fL (80.0-98.0); Mean Platelet Volume 9.8 fL (9.4-12.3); Monocytes Absolute Auto 0.8 X10*3/uL (0.1-1.2); Monocytes Percent Auto 8.2 % (2-11); Neutrophils Absolute Auto 6.5 x10*3/uL (2.0-8.3); Neutrophils Percent Auto 69.8 % (45-73); Platelet Count 318 X10*3/uL (160-400); Red Blood Count 4.23 X10*6/uL (4.20-5.50); Red Cell Distribution Width 14.6 % (11.0-16.0); White Blood Count 9.3 X10*3/uL (4.8-10.8)
[2024-10-24 13:34] LABS: CT PCR NOT DETECTED (Not Detect.); NG PCR NOT DETECTED (Not Detect.)
[2024-10-27 05:03] LABS: TS Negative Control Passed; TS Panel A 0; TS Panel B 2; TS Positive Control Passed; TSpotTB Negative (Negative)
== END 2024-10-24 09:31 | disposition home or self-care (01) ==
LOC: HO.10HDL 09:30
PROVIDERS: Visit Provider Internal Medicine
DX: Z00.00 Encounter for general adult medical examination without abnormal findings (principal); Z11.3 Encounter for screening for infections with a predominantly sexual mode of transmission; Z11.1 Encounter for screening for respiratory tuberculosis; N92.0 Excessive and frequent menstruation with regular cycle; F32.2 Major depressive disorder, single episode, severe without psychotic features
CPT/HCPCS: 85025; 86481; 87491; 87591

== ENCOUNTER 2024-12-05 09:19 | Outpatient (REF) | payer MEDICAID, SELFPAY ==
[2024-12-05 11:17] LABS: HIV AB/AG Nonreactive (Nonreactive)
[2024-12-05 11:19] LABS: Syphilis Screen Nonreactive (Nonreactive)
[2024-12-05 13:38] LABS: CT PCR NOT DETECTED (Not Detect.); NG PCR NOT DETECTED (Not Detect.)
== END 2024-12-05 09:20 | disposition home or self-care (01) ==
LOC: HO.10HDL 09:19
PROVIDERS: Visit Provider Internal Medicine
DX: M54.50 Low back pain, unspecified (principal); N73.9 Female pelvic inflammatory disease, unspecified; R10.2 Pelvic and perineal pain; Z76.89 Persons encountering health services in other specified circumstances
CPT/HCPCS: 86780; 87389; 87491; 87591

== ENCOUNTER 2025-06-22 08:29 | Emergency (ER) | payer MEDICAID, SELFPAY ==
--- NOTE | ~2025-06-22 | US_ITS ---
EXAMINATION: US OBSTETRICAL ULTRASOUND CLINICAL INFORMATION: 5 weeks , bleeding and pain. HCG 1423 COMPARISON: None relevant. LMP: Unknown.. TECHNIQUE: Ultrasound of the maternal pelvis is performed using transabdominal and transvaginal transducers. Transvaginal imaging is performed due to inadequate visualization transabdominally. M-mode Doppler is also performed. FINDINGS: There is an intrauterine gestational sac within the fundus with good dual decidual reaction, measuring an average diameter of 0.24 cm, corresponding with 4 weeks and 5 days. No yolk sac, and no pole are visualized currently. No detectable heart rate currently. Normal-appearing myometrium and cervix. MATERNAL ADNEXA: The right maternal ovary measures 3.3 x 2.4 x 2.8 cm. Normal sonographic appearance. The left maternal ovary measures 3.2 x 2.7 x 2.1 cm. Normal sonographic appearance. There is no significant maternal adnexal mass. No maternal pelvic ascites. US/US OB pelvic and transvaginal IMPRESSION: 1. Intrauterine gestational sac with good dual decidual reaction in the fundal endometrium. No detectable yolk sac or pole at this time. Average sac diameter is 0.24 cm, corresponding with 4 weeks and 5 days. 2. Normal ovaries bilaterally. No adnexal masses. 3. No free fluid. Electronically signed by: Jt Castro MD 06/22/2025 10:58 AM EDT
[2025-06-22 08:45] VITALS: BP 115/77; PULSE 83; RESP 18; TEMP 36.9; O2SAT 98; BMI 29.2
[2025-06-22 09:01] LABS: Appearance Urine Clear; Glucose Urine UA Negative (Negative); PH 6.0 (5.0-9.0); Specific Gravity - Urine 1.025 (1.005-1.025); UPreg QC Valid YES
--- OUTSIDE RECORDS SUMMARY | 2025-06-22 09:08 | XMS_ITS | Encounter Summary ---
Author Organization [facility] Address [address] [facility] [address] [place] [address] Care Team Providers Care Rubber Turner Name Role Phone Tara Lynch MD Primary Care Provide r Reason for Visit * Reason Comments Med Refill Encounter Details Date Type Department Care Team (Late st Contact Info) Description 12/10/2022 Refill [facility] [address] [place] [address] Caryl Valverde MD [address] [place] [address] Social History Tobacco Use Types Packs/Day Years Used Date Smoking Tobacco: Never Assessed Comments Unknown Sex and Gender Information Value Date Recorded Sex Assigned at Female 09/21/2022 10:18 AM EDT Legal Sex Female 10:18 AM EDT Gender Identity Female 09/21/2022 10:18 AM EDT Sexual Orientation Straight 09/21/2022 10 :18 AM EDT documented as of this encounter Plan of Treatment Not on file documented as of this encounter Visit Diagnoses Not on filedocumented in this encounter Care Teams Rubber Turner Relationship Specialty Start Date End Date Tara Lynch MD [address] [place] [address] PCP - General Family Medicine 11/16/18 11/25/23 documented as of this encounter
--- OUTSIDE RECORDS SUMMARY | 2025-06-22 09:08 | XMS_ITS | Clinical Summary ---
Author Organization [facility] Address [address] [place] [address] Care Team Providers Care Geography Faculty Member Name Role Phone Unavailable Primary Care Provider Unavailabl e Social History Tobacco Use Types Packs/Day Years Used Date Smoking Tobacco: Never Assessed Comments Unknown Sex and Gender Information Value Date Recorded Sex Assigned at Not on file Legal Sex Female 2:56 PM EST Gender Identity Not on file Sexual Orientation Not on file Plan of Treatment Health Maintenance Due Date Last Done Comments DTaP,Tdap,and Td Vaccines (1 - Tdap) 2016 Hepatitis B Vaccines (1 of 3 - 19+ 3-dose series) 2016 Cervical Cancer Screening: P ap Smear 2018 COVID-19 Vaccine (1 - 2023-2 5 season) 2024 Depression Screening 11/22/2024 Influenza Vaccine (#1) 2025 HIB Vaccines Aged Out No longer eligi ble based on patient's age to complete this topic HPV Vaccines Aged Out No longer eligi ble based on patient's age to complete this topic Hepatitis A Vaccines Aged Out No long er eligible based on patient's age to complete this topic IPV Vaccines Aged Out No longer eligi ble based on patient's age to complete this topic MMR Vaccines Aged Out No longer eligi ble based on patient's age to complete this topic Meningococcal ACWY Vaccine Aged Out N o longer eligible based on patient's age to complete this topic Meningococcal B Vaccine Aged Out No l onger eligible based on patient's age to complete this topic Pneumococcal Vaccine: Pediat rics (0 to 5 Years) and At-Risk Patients (6 to 49 Years) Aged Out No longer eligible b ased on patient's age to complete this topic RSV Immunization Patients Un risa 20 months Aged Out No longer eligible b ased on patient's age to complete this topic Varicella Vaccines Aged Out No longer eligible based on patient's age to complete this topic
--- OUTSIDE RECORDS SUMMARY | 2025-06-22 09:08 | XMS_ITS | Clinical Summary ---
Author Organization [facility] Address [address] [place] [address] Phone Care Team Providers Care Meatcutter Name Role Phone Ivelisse Herrera MD Primary Care Provider Allergies Active Allergy Reactions Criticality Noted Date Comments Shrimp 09/11/2020 Medications No known medications Active Problems Problem Noted Date Diagnosed Date Delayed delivery after spontaneous rupture of me mbranes 01/31/2021 Overview (01/31/2021): 01/31/2021 8:30a SROM of clear fluid 01/31/2021 vtx by sono Abdominal pain 11/26/2020 Maternal varicella, non-immune 09/16/2020 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 Titer ordered. 09/16/20 Dr. Milligan recommends testing FOB for K antigen and setting up MFM consult - relayed to pt and partner. Test ordered, consult requested. Pt reports current partner might not be FOB, and she is unable to contact the other person for testing. Current partner declining to do testing 10/07/20 MFM consult: u/s showed normal peak systolic flow of MCA suggesting absence of anemia; amnio performed for karyotyping. Continue weekly MCA dopplers, per MFM report 10/18/20 Normal MCA doppler, suggesting absence of anemia 10/30/20 per MFM consult, amnio revealed fetus neg for Amirah antigen. No further follow-up necessary Assessment & Plan (11/08/2020 1:42 PM EST): Kiko is relieved that the baby isn't affected. No further f/u. Assessment & Plan (09/28/2020 9:34 AM EST): Testing has been ordered for FOB Husam Gao but not completed. Pt stated he would go to lab today; I followed up with her on the phone later in the day and she said he hadn't, and she expressed doubt that she would be able to convince him to go. We did review the potential severity of HDN with this antibody. Advised that she can continue to encourage him to complete labwork at this point, but we should treat him as presumed positive and begin following her titers. She also needs an MFM consult vicenta, which she is aware of. Send message to office for f/u. Assessment & Plan (09/16/2020 12:34 PM EDT): Dr. Milligan recommends testing FOB for K antigen and setting up MFM consult. 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 HR due to Anti-K antibody Group PN care? * Rh pos GC/Chlam pos in 1st trimester; MAINE neg; 01/24/2021 neg/neg PAP 08/12/20 HSIL - needs colpo Tdap 12/20/20 Flu 09/26/20 Hgb * GTT * 28 wk Repeat RPR * GBS 01/24/2021 neg PPBC * screening NT not completed due to position, pt declined repeat attempt Transfer of care at 17+1 wks 09/07/20 Recs reviewed (DCR) Assessment & Plan (01/29/2021 9:54 AM EST): Patient feels well. Notes good movement. No concerns today. Reviewed negative lab test results from last week with patient. Assessment & Plan (01/24/2021 2:45 PM EST): Kiko is uncomfortable. She is having a lot of hip pain and pelvic pressure. She can't sleep well at night and feels like the baby is falling out during the day. She has a support belt but it doesn't help. Has tried baths but that is not helpful either. Would like SVE today. Baby is moving well. SVE closed long and high. Reassured. Discussed using a long cloth as support. Tylenol PM for night time discomfort. She will try those things. GBS collected today. Will have weekly in person visits. Assessment & Plan (01/03/2021 2:25 PM EST): Kiko is doing well, no concerns. Having lower back and R hip/leg pain; has been stretching and using a heat pad. Recommended body work - she will look into going to the chiropractor. Discussed GBS for NV. +FM. Denies LOF, VB, UCs. Reviewed FM, PTL, PEC, and labor precautions. NV at 36 weeks. Assessment & Plan (12/22/2020 12:33 PM EST): Kiko reports feeling very well today. Some mild bilateral hip pain has developed over the last couple of weeks. We discussed comforts including yoga, massage, sitting on a yoga ball, and a support belt. Pt happy with those suggestions. +vits. Gathering preps for baby. Pt prefers in person visits. Assessment & Plan (11/29/2020 5:01 PM EST): Kiko is feeling well today. No further pressure or contractions. Has been focusing more on hydration. Baby is moving well. Is having some stress at home. FOB family insisted on paternity test which she did this week. Results will be ready on Wednesday. She is wondering if this is what is causing her contractions. We reviewed that stress can lead to symptoms and self care ideas were reviewed. She does not feel that she is in any danger. Please follow up at next visit. Assessment & Plan (11/08/2020 1:43 PM EST): Kiko is doing well, no OB concerns. She has scant light pink spotting a couple mornings a week. Physical exam on 10/22 didn't reveal any causes of VB, and scans have been normal. Advised to call if it increases to spotting or heavy like a period. She is doing her 2nd trimester labs today. +FM. Denies LOF, VB, UCs. Reviewed FM, PTL, PEC, and labor precautions. NV in person at 28 weeks. Assessment & Plan (09/28/2020 9:31 AM EST): Feels well. Just had normal anatomy scan. Reviewed labwork due at 26-28 weeks. History of hemorrhage 09/07/2020 Overview (01/29/2021): 2014; rec'd 2u [facility] Will need type and screen and IV access in . Confirm [place]-neg blood available. Chlamydia trachomatis infection in Overview (01/29/2021): 07/30/20 08/12/20 rpt culture neg (records in media 10/25/20 repeated d/t sx and partner not treated. NEG Needs repeat test in 3rd trimester: Repeated 01/24/21 negative Assessment & Plan (01/24/2021 2:41 PM EST): GC/CT testing today. Reports that partner tested negative Immunizations Immunization Administration Dates Next Due DTaP 07/20/2001, 9,02/12/1998,12/11,1997 HPV,quadrivalent 10/01/2011,08/28/2009, 7 Hepatitis A, ped/adol, 2 dose 09/12/2014, 014 Hepatitis B 02/12/1998,1997,1997 Hib,HbOC 12/06/1998,02/12/1998,1997 IPV 07/20/2001, 8,1997,10/08 Influenza Quadrivalent Prese rvative Free IM 09/12/2014 Influenza Quadrivalent w/ Pr eservative IM 11/16/2017,10/29/2016 Influenza Trivalent w/ Preservative IM 1,08/26/2007 MMR 07/18/1999,07/31/1998 Meningococcal MPSV4 08/28/2009 Tdap 12/20/2020,08/28/2009 Varicella 08/28/2009,12/06/1998 Family History Relation Status Comments Father Alive Mother Alive Son Alive Social History Tobacco Use Types Packs/Day Years Used Date Smoking Tobacco: Never Smokeless Tobacco: Never Alcohol Use Standard Drinks/Week Comments Yes 0 (1 standard drink = 0.6 oz pur e alcohol) Education Answer Date Recorded Are you interested in more education? Not on demi e 03/19/2023 Are you concerned about learning? Not on file 03/19/2023 No 03/19/2023 No 03/19/2023 Digital Access Answer Date Recorded No 04/17/2023 No 04/17/2023 Reliable internet access at home? Not on file 04/17/2023 Device with a working camera? Not on file Intimate Partner Violence Answer Date R ecorded Are you denied basic needs s uch as food, clothing, or medical care? No 03/01/2024 In the past 12 months have y ou been in a relationship with a person who hurts, threatens, or tries to control you? No 03/01/2024 Are you denied basic needs s uch as food, clothing, or medical care? No 03/01/2024 In the past 12 months have y ou been in a relationship with a person who hurts, threatens, or tries to control you? No 03/01/2024 Comments No Sex and Gender Information Value Date Recorded Sex Assigned at Female 01/31/2021 10:41 PM EST Legal Sex Female 9:11 AM EDT Gender Identity Female 01/31/2021 10:41 PM EST Sexual Orientation Straight 01/31/2021 10 :41 PM EST Occupation Industry Job Start Date Job End Date stay at home mom Not on file Not on file Not on file Last Filed Vital Signs Vital Sign Reading Time Taken Comments Blood Pressure 109/76 03/01/2024 8:48 PM EDT Pulse 76 03/01/2024 8:48 PM EDT Temperature 36.7 C (98.1 F) 03/01/2024 8:48 PM EDT Respiratory Rate 18 03/01/2024 8:48 PM EDT Oxygen Saturation 98% 03/01/2024 8:48 PM EDT Inhaled Oxygen Concentration - - Weight 82.1 kg (181 lb) 03/01/2024 5:51 PM EDT Height 157.5 cm (5' 2 ) 03/01/2024 5:51 PM EDT Body Mass Index 33.11 03/01/2024 5:51 PM EDT Plan of Treatment Upcoming Encounters Date Type Department Care Team (Late st Contact Info) Description 06/29/2025 1:30 PM EDT Telephone [facility] [address] [place] [address] [place] [phone] [address] [id number] [email or web address] Health Maintenance Due Date Last Done Comments DEPRESSION SCREENING 2009 PAP SMEAR 02/09/2021 08/12/2020 COVID-19 VACCINE (2023-2 5 season) 2024 08/05/2021 Adult Td,Tdap Booster 12/20/2030 12/20/2020 , 08/28/2009 HIB VACCINES Completed 12/06/1998, 02/12/1998, 1997 MENINGOCOCCAL VACCINES (ACWY) Aged Out 08/28/2009 No longer eligible based on patient's age to complete this topic HEPATITIS A VACCINES Completed 09/12/2014, 02/27/2014 HEPATITIS C SCREENING Completed 09/12/2020 HIV ONE-TIME SCREENING (18-6 5 YEARS) Completed 09/12/2020 SMOKING STATUS SCREENING (On ce After 26 Yrs) Completed 03/01/2024 MENINGOCOCCAL VACCINES (B) Aged Out N o longer eligible based on patient's age to complete this topic PNEUMOCOCCAL VACCINES (0-49 years) Aged Out No longer eligible b ased on patient's age to complete this topic Medical Devices Not on file Procedures Procedure Name Priority Date/Time Associated Diagnosis Comments HEPATITIS C ANTIBODY, QUALITATIVE Routine 09/12/2020 11:12 AM EDT Supervision of normal intrauterine in multigravida in second trimester PAP SMEAR FOR RESULT ENTRY ONLY Routine 08/12/2020 from Last 3 Months or Most Recently Relevant to Health Maintenance Results * Hepatitis C antibody, qualitative (09/12/2020 11:12 AM EDT) HCV NON-REACTIV E NON-REACTI VE [facility] Blood 09/12/2020 11:1 2 AM EDT 09/12/2020 11:21 AM EDT Devon DAVID LAB BLOOD ORDERABLES F inal Result [facility] [address] [place], [place] [id number] * PAP SMEAR FOR RESULT ENTRY ONLY (08/12/2020) Pap smear [facility] Historical Provider HEALTH MAINTENANCE Final Result from Last 3 Months or Most Recently Relevant to Health Maintenance Insurance [facility] [place] [place] [address] [place] [address] GEMINI HICKS [id number] [facility] [place]KS [id number] Advance Directives For more information, please contact: [phone] (9AM - 5PM [facility], Wednesday-Wednesday) Documents on File Type Date Recorded Patient Booking Clerk Expl anation Healthcare Proxy 02/04/2021 10:50 AM * Full Code (Latest Code Status on File) Date Activated Date Inactivated Comments 01/31/2021 11:43 PM Question Answer Comments Code Status Confirmed With: Patient Care Teams Meatcutter Relationship Specialty Start Date End Date Ivelisse Herrera MD [address] [place] [address] [place] [address] PCP - General Internal Medicine 03/01/24 Additional Source Comments The information contained in this document represents components of the legal health record. It is not the complete legal health record.[facility]
[2025-06-22 09:13] LABS: MANUAL DIFF FLAG NO
[2025-06-22 09:21] LABS: Hematocrit 35.0 % (37.0-47.0); Hemoglobin 12.0 g/dl (12.0-16.0); Imm Gran Abs Auto 0.01 X10*3/uL (0.00-0.03); Imm Gran Pct Auto 0.2 % (0.0-0.4); Lymphocytes Absolute Auto 1.6 X10*3/uL (1.2-4.9); Mean Corpuscular HGB Conc 34.3 g/dl (31.0-35.0); Mean Corpuscular Hemoglobin 29.9 pg (27.0-33.0); Mean Corpuscular Volume 87.1 fL (80.0-98.0); NRBC Abs Auto 0.000 X10*3/uL (0.0-0.012); NRBC Pct Auto 0.0 /100WBC (0.0-0.2); Platelet Count 266 X10*3/uL (160-400); Red Blood Count 4.02 X10*6/uL (4.20-5.50); White Blood Count 6.2 X10*3/uL (4.8-10.8)
--- NOTE | 2025-06-22 09:21 | ED_ITS ---
HPI - General Chief complaint: Vaginal Bleeding Stated complaint: Pt states might be having and atopic Time Seen by Provider: 06/22/25 09:02 Source: patient Mode of arrival: ambulatory Limitations: no limitations History of Present Illness ED Provider: Ebonie Odell NP HPI Narrative: Patient is a 29-year-old female history of reported ectopic last year requiring surgical intervention does not recall which side, reporting positive home test 2 days ago, LMP 04/02/2025. Reports that she had a negative testing on 05/30/2025 and 06/04/2025. At times her menses can be irregular. Yesterday she began experiencing dark red vaginal bleeding reports using for sanitary napkins yesterday. Has associated diffuse lower back pain and pelvic pain. Denies dysuria, urinary frequency/urgency/hesitancy, recent abnormal vaginal discharge or itching. Additionally reports that she had a negative STI testing on 06/04/2025. Denies abdominal pain, nausea, vomiting, fevers, chills Related Data Previous Rx's ?Medication ?Instructions ?Recorded prednisone 20 mg tablet 20 mg PO BID #6 tabs 2 azithromycin 250 mg tablet 250 mg PO DAILY 4 days #4 t abs 02/08/22 (Zithromax) cefuroxime axetil 500 mg tablet 500 mg PO BID 10 days #20 tabs 02/08/22 oxycodone 5 mg capsule 5 mg PO BID PRN pain #8 caps 02/08/22 valacyclovir 1 gram tablet 1,000 mg PO BID #14 tabs metronidazole 0.75 % (37.5 mg/5 1 appful vaginal DAILY 5 days #70 06/22/25 gram) vaginal gel (Vandazole) grams vit no.95-ferrous 1 tab PO DAILY #30 tabs 12/16 fumarate 28 mg-folic acid 800 mcg tablet () Allergies Allergy/AdvReac Type Severity Reaction Status Date / Time shrimp (SHRIMP) Allergy Intermediate FACIAL Verified 06/22/25 08:46 SWELLING Review of Systems 2 Review of Systems: Yes all other systems are reviewed and are negative PMFSH Past Medical History Attestation statement: The following information was validated with the patient. Source: old records reviewed Social History Social History Alcohol intake: current Alcohol intake frequency: holidays/special occasions only Alcohol type: hard liquor Patient Tobacco Use Status: Never used Tobacco Substance Use Type: Marijuana Physical Exam 2 Exam: Exam: Appearance: Alert.?Oriented to person, place and time. No acute distress.?Normal affect. Eyes: Pupils equal, round and reactive to light.? ENT: Pharynx normal.?? Neck: Normal inspection.? Neck supple.?? CVS: Heart sounds normal. Normal heart rate and rhythm.? Pulses normal.?? Respiratory: No respiratory distress.? Lung sounds clear to auscultation bilaterally?? Abdomen: Soft and non-tender. Normoactive bowel sounds. Genital: Declined internal pelvic examination Skin: Skin warm and dry.? Normal skin color.?? Extremities: No lower extremity edema.? No calf ttp? Neuro: Moves all extremities spontaneously. Sensation intact bilaterally. Ambulates with normal steady gait. Vital Signs: Vital Signs: Last Vital Signs Temp 98.5 F 06/22/25 11:36 Pulse 83 06/22/25 11:36 Resp 18 06/22/25 11:36 BP 115/77 06/22/25 11:36 Pulse Ox 98 06/22/25 11:36 O2 Del Method Room Air 06/22/25 11:36 BMI result Body Mass Index 29.2 Course Reevaluation(s) Reevaluation #1: Ultrasound revealing intrauterine early gestation, no evidence of ectopic . She has tested positive for bacterial vaginosis. Has had this infection in the past, feels strongly about using metronidazole gel versus oral tablets. Discussed considerations for usage in . She does not have a current OBGYN. She will make contact with the offices later today. She will require repeat hCG in 48 hours for which I have told her she may return to emergency department for. Reviewed potential for threatened given her associated bleeding, however this may continue onto a normal healthy as well. She was given strict return precautions. All questions have been answered Time: 11:13 Medical Decision Making Medical Decision Making [facility] Narrative: Patient is a 29-year-old female with a reported past medical history of ectopic , LMP 04/02/2025 but as per HPI had negative testing earlier this month only testing positive 2 days ago, suspecting unlikely to be 11 weeks gestation. Arriving with pelvic and lower back pain in addition to vaginal bleeding yesterday but none today. Plan to obtain urinalysis, serum labs including hCG, an ultrasound for further evaluation. Differential including urinary tract infection, pyelonephritis, ectopic , for end , , no sexually transmitted infection, ovarian cyst BPH. Lower suspicion for tubo-ovarian abscess, PID, ovarian torsion, ruptured ovarian cyst given benign abdominal examination. Differential Diagnosis Differential Diagnoses: The differential diagnosis associated with the presentation includes (See narrative above) Admission/Observation Consideration of admission/observation: Escalation of care including admission/observation considered Lab Data MDM Lab Attestation statement: I reviewed the patient's lab results. 06/22/25 09:09 06/22/25 09:09 Labs: Lab Results 06/22/25 06/22/25 06/22/25 Range/Units 08:53 09:09 09:33 WBC 6.2 (4.8-10.8) X10*3/uL RBC 4.02 L (4.20-5.50) X10*6/uL Hgb 12.0 (12.0-16.0) g/dl Hct 35.0 L (37.0-47.0) % MCV 87.1 (80.0-98.0) fL MCH 29.9 (27.0-33.0) pg MCHC 34.3 (31.0-35.0) g/dl RDW 13.8 (11.0-16.0) % Plt Count 266 (160-400) X10*3/uL MPV 9.2 L (9.4-12.3) fL Immature Gran % (Auto) 0.2 (0.0-0.4) % Neut % (Auto) 65.3 (45-73) % Lymph % (Auto) 25.0 (20-40) % Cecil % (Auto) 8.2 (2-11) % Eos % (Auto) 1.0 (0-4) % Baso % (Auto) 0.3 (0-2) % Lymph # (Auto) 1.6 (1.2-4.9) X10*3/uL Cecil # (Auto) 0.5 (0.1-1.2) X10*3/uL Eos # (Auto) 0.1 (0.0-0.4) X10*3/uL Baso # (Auto) 0.0 (0.0-0.2) X10*3/uL Abs Immat Gran (auto) 0.01 (0.00-0.03) X10*3/uL Absolute Neuts (auto) 4.1 (2.0-8.3) x10*3/uL Absolute Nucleated RBC 0.000 (0.0-0.012) X10*3/uL Nucleated RBC % (auto) 0.0 (0.0-0.2) /100WBC Sodium 140 (135-145) mmol/L Potassium 3.6 (3.3-5.1) mmol/L Chloride 113 H (96-108) mmol/L Carbon Dioxide 20 L (22-29) mmol/L Anion Gap 11 L (12-20) BUN 8 L (9-16) mg/dL Creatinine 0.67 (0.5-1.4) mg/dL Estim Creat Clear Calc 122.1 Estimated GFR > 60 Random Glucose 99 (60-115) mg/dL Calcium 8.2 L D (8.4-10.2) mg/dL Total Bilirubin 0.2 (0.0-1.0) mg/dL AST 23 (5-31) U/L ALT 21 (0-31) U/L Alkaline Phosphatase 59 (39-117) U/L Total Protein 6.8 (6.5-8.0) g/dL Albumin 3.9 (3.5-5.0) g/dL TSH 0.59 (0.32-4.0) uIU/mL Beta HCG, Quant 1423 mIU/mL Urine Color Yellow Urine Appearance Clear Urine pH 6.0 (5.0-9.0) Ur Specific Pompey 1.025 (1.005-1.025) Urine Protein Negative (Neg-Trace) mg/dL Urine Glucose (UA) Negative (Negative) mg/dL Urine Ketones Trace (Negative) mg/dL Urine Blood Negative (Negative) Urine Nitrite Negative (Negative) Ur Leukocyte Esterase Negative (Negative) Urine RBC 0-2 (0-2) /HPF Urine WBC 0-5 (0-5) /HPF Ur Squamous Epith Cells 3-5 (0-2) /HPF Urine Bacteria None Seen (None Seen) Hyaline Casts 0-2 (0-2) /LPF Urine Test POSITIVE H (NEGATIVE) Chlam trachomat DNA PCR NOT DETECTED (Not Detect.) N.gonorrhoeae DNA (PCR) NOT DETECTED (Not Detect.) T. vaginalis (PCR) NOT DETECTED (Not Detect) Bact vaginosis (PCR) POSITIVE A (Negative) C. krusei/glabrata (PCR) NOT DETECTED (Not Detect) Dora group (PCR) NOT DETECTED (Not Detect) Radiology Impression Discussion of test interpretation with radiology: I have reviewed the radiologist's reading. Radiologist Impression: US/US OB pelvic and transvaginal IMPRESSION: 1. Intrauterine gestational sac with good dual decidual reaction in the fundal endometrium. No detectable yolk sac or pole at this time. Average sac diameter is 0.24 cm, corresponding with 4 weeks and 5 days. 2. Normal ovaries bilaterally. No adnexal masses. 3. No free fluid. External Record Review External record reviewed: Outpatient record Discharge Plan Discharge Clinical Impression: Threatened Patient Disposition: Home, Self-Care Instructions: Threatened Miscarriage (ED) Additional Instructions: As discussed, bleeding in early there is always a concern for potential miscarriage. On ultrasound today it does show that you have a gestational sac within the uterus which is where it should be. There was no evidence of ectopic at this time. Return to emergency department to have repeat blood hCG test in 48 hours on Wednesday. Additionally, you have tested positive for bacterial vaginosis today, we discussed treatment options and have elected to use the metronidazole vaginal cream. Please instill this once daily ideally at night as prescribed for 5 days. It was important that you make you are OB provider aware of this testing result as well as treatment. You were seen in our Emergency Department for an early test being positive and abdominal pain/and or vaginal bleeding. It is very early on and your symptoms require repeat testing and monitoring. Your initial ultrasound did not confirm a in your uterus. You need repeat testing of your blood test (hcg) in 48 hours. Another Ultrasound may also need to be done in 5 days, this should be determined by your outpatient provider. These tests can be done at your primary care office, OBGYN office, or the Emergency Department if you cannot reach your outside providers. After discharge please monitor your symptoms and seek immediate care for bleeding heavier than a period, severe abdominal pain, fainting, or any other concerns. Please see list of local OBGYN providers below: OBGYN and Midwifery [facility] [address] [phone] [facility] [address] [phone] OBGYN and Midwifery [facility] [phone] [facility] [phone] Prescriptions: New metronidazole [Vandazole] 0.75 % (37.5mg/5 gram) gel 1 appful vaginal DAILY 5 Days Qty: 70 0RF PNV cmb#95-ferrous fumarate-FA [] 28 mg iron- 800 mcg tablet 1 tab PO DAILY Qty: 30 0RF No Action prednisone 20 mg tablet 20 mg PO BID Qty: 6 0RF cefuroxime axetil 500 mg tablet 500 mg PO BID 10 Days Qty: 20 0RF azithromycin [Zithromax] 250 mg tablet 250 mg PO DAILY 4 Days Qty: 4 0RF Rx Instructions: start on day 2 of therapy oxycodone 5 mg capsule 5 mg PO BID PRN (Reason: pain) Qty: 8 0RF Rx Instructions: Patient can partially filled prescription upon request. valacyclovir 1 gram tablet 1,000 mg PO BID Qty: 14 0RF Referrals: Ivelisse Herrera MD [Primary Care Provider, Internal Medicine] Interventions: ED Discharge Assessment Last Done: 06/22/25 11:36 Discharge Date/Time: 06/22/25 11:37 Print Language: Swedish
[2025-06-22 09:35] LABS: Alanine Aminotransferase 21 U/L (0-31); Albumin Level 3.9 g/dL (3.5-5.0); Alkaline Phosphatase 59 U/L (39-117); Anion Gap 11 (12-20); Aspartate Amino Transferase 23 U/L (5-31); Blood Urea Nitrogen 8 mg/dL (9-16); Calcium 8.2 mg/dL (8.4-10.2); Carbon Dioxide 20 mmol/L (22-29); Chloride 113 mmol/L (96-108); Creatinine Clr Calc Pharmacy 122.1; Estimated Glomerular Filt Rate > 60; Potassium 3.6 mmol/L (3.3-5.1); Sodium 140 mmol/L (135-145); Total Protein 6.8 g/dL (6.5-8.0)
[2025-06-22 10:40] LABS: Bacterial Vaginosis PCR POSITIVE (Negative); Candida Group PCR NOT DETECTED (Not Detect); Candida glab krusei PCR NOT DETECTED (Not Detect); Trichomonas vaginalis PCR NOT DETECTED (Not Detect)
[2025-06-22 11:11] LABS: CT PCR NOT DETECTED (Not Detect.); NG PCR NOT DETECTED (Not Detect.)
--- NOTE | 2025-06-22 11:19 | PC.NURSE ---
patient a&ox3, vaginal swabs performed, UA obtained, pt had US, will be discharging to home
[2025-06-22 11:36] VITALS: BP 115/77; PULSE 83; RESP 18; TEMP 36.9; O2SAT 98
== END 2025-06-22 11:37 | disposition home or self-care (01) ==
PROVIDERS: Nurse Practitioner Family; Emergency Provider Emergency Medicine Emergency Medical Services; PCP Internal Medicine
DX: O20.0 Threatened abortion (principal); N93.9 Abnormal uterine and vaginal bleeding, unspecified
CPT/HCPCS: 36415; 76801; 76817; 80053; 81001; 81025; 81515; 84443; 84702; 85025; 87491; 87591; 99284

== ENCOUNTER → 2025-06-22 09:02 | Outpatient (BNV) | payer MEDICAID, SELFPAY | PROVIDERS: Emergency Provider Emergency Medicine Emergency Medical Services; PCP Internal Medicine; Visit Provider Radiology Diagnostic Radiology | DX: O20.9 Hemorrhage in early pregnancy, unspecified (principal); Z3A.01 Less than 8 weeks gestation of pregnancy | CPT/HCPCS: 76801; 76817 ==

== ENCOUNTER 2025-06-24 09:12 | Emergency (ER) | payer MEDICAID, SELFPAY ==
[2025-06-24 09:21] VITALS: BP 113/60; PULSE 67; RESP 19; TEMP 36.6; O2SAT 99; BMI 28.9
--- NOTE | 2025-06-24 10:05 | ED.GENADULT ---
HPI - General Adult General Chief complaint: General Medical Stated complaint: orders to retest of topic Time Seen by Provider: 06/24/25 09:44 Source: patient Mode of arrival: ambulatory Limitations: no limitations History of Present Illness ED Provider: ROSHAN SOW PA-C HPI narrative: 29 year old female history of reported ectopic last year requiring surgical intervention presents to the ED today for repeat HCG testing. Patient was evaluated at our facility two days ago with concerns of pelvic/back pain and dark red vaginal bleeding following a positive home test on 06/19/25. Her LMP was 04/02/25. Reports negative home testes on 05/30/25 and 06/04/25. Her serum hcg two days ago was 1423 and ultrasound demonstrated IUP without detectable yolk sac or pole. She was advised to follow up outpatient or to return to the ED in 48 hours for repeat hcg testing. She also tested positive for BV and was started on metronidazole vaginal cream. Today, she reports minimal lower abdominal discomfort. She is no longer bleeding vaginally. Denies any other symptoms or concerns at this time. She tells me she is hungry and would like to recieve her results and go home. Related Data Previous Rx's ?Medication ?Instructions ?Recorded prednisone 20 mg tablet 20 mg PO BID #6 tabs 02/05/22 azithromycin 250 mg tablet 250 mg PO DAILY 4 days #4 tabs 02/08/22 (Zithromax) cefuroxime axetil 500 mg tablet 500 mg PO BID 10 days #20 tabs 02/08/22 oxycodone 5 mg capsule 5 mg PO BID PRN pain #8 caps 02/08/22 valacyclovir 1 gram tablet 1,000 mg PO BID #14 tabs 05/07/22 metronidazole 0.75 % (37.5 mg/5 1 appful vaginal DAILY 5 days #70 06/22/25 gram) vaginal gel (Vandazole) grams vit no.95-ferrous 1 tab PO DAILY #30 tabs 06/22/25 fumarate 28 mg-folic acid 800 mcg tablet () Allergies Allergy/AdvReac Type Severity Reaction Status Date / Time shrimp (SHRIMP) Allergy Intermediate FACIAL Verified 06/24/25 09:22 SWELLING Review of Systems Review of Systems: Constitutional: No fever, chills, fatigue, night sweats, weight changes ENT/Mouth: No ear pain, hearing loss, nasal congestion, sinus pain, rhinorrhea, sore throat Eyes: No eye pain, swelling, redness, vision changes, discharge Cardio: No chest pain, palpitations, DELGADO, orthopnea, peripheral edema Pulm: No SOB, cough, sputum, wheezing, dyspnea, hemoptysis GI: No nausea, vomiting, hematemesis, abdominal pain, diarrhea, constipation, hematochezia, melena : No irregular bleeding, dysuria, frequency, urgency, hesitancy, hematuria, flank pain, urinary flow changes, urinary incontinence or retention MSK: No back pain, neck pain, joint pain, myalgias Skin: No lesions, rashes Neuro: No weakness, numbness, paresthesias, LOC, dizziness, headache Psych: No anxiety/panic, depression, SI/HI, AH/VH All other systems reviewed and are negative. [facility] Past Medical History Attestation statement: The following information was validated with the patient. Source: old records reviewed and nursing notes reviewed Social History Social History Alcohol intake: current Alcohol intake frequency: holidays/special occasions only Alcohol type: hard liquor Patient Tobacco Use Status: Never used Tobacco Substance Use Type: Marijuana Advance Directives: No Advance Directives Information Provided: No Do you have a plan to hurt others: No Plan Physical Exam ED Vital Signs: Vital Signs - 24 hr 06/24/25 09:21 06/24/25 10:13 06/24/25 11:12 Temperature 98 F 97.9 F 98.7 F Pulse Rate 67 63 71 Respiratory Rate 19 18 18 Blood Pressure 113/60 110/61 115/81 Pulse Oximetry 99 100 98 Oxygen Delivery Method Room Air Room Air Room Air 06/24/25 11:22 Temperature 98.7 F Pulse Rate 71 Respiratory Rate 18 Blood Pressure 115/81 Pulse Oximetry 98 Oxygen Delivery Method Room Air BMI result Body Mass Index 28.9 Vital signs stable General: Well appearing, in no acute distress. Skin: Warm, dry, intact. No rashes or lesions. Head: Normocephalic, atraumatic. EENT: Hearing is intact b/l. Conjunctiva clear. PERRLA. EOM intact. Moist mucous membranes.? Neck: Supple without LAD Cardiac: Chest wall symmetric. RRR Lungs: Normal respiratory effort without accessory muscle use. CTA bilaterally Abdomen: Soft, non-tender, non-distended. No rebound tenderness or guarding. Positive BS x4. Back: No midline spinous or paraspinal tenderness. No step off deformity. Ext: Upper and lower extremities atraumatic, without tenderness, deformity, swelling or erythema Neuro: AOx3. Normal speech. Ambulating with steady gait. Course Course Course Narrative: I have reviewed ultrasound results from 06/22/2025 showing intrauterine gestational knocked with good dual decidual reaction. Undetectable yolk sac or pole at this time. Measuring possibly 4 weeks and 5 days. CBC today shows stable H&H. No leukocytosis or left shift. Chemistry without acute electrolyte abnormality requiring intervention. No ELIEL. HCG has doubled from 1423 to 3072. Given upward trending hcg after 48 hours with IUP on US, reassuring for early . She is no longer having any vaginal bleeding. her exam is benign, I do not have suspicion for any other intraabdominal pathology. I discussed with my attending dr. banks. at this time, she does not need to return to the ED for repeat HCGs. She needs to follow up with outpatient OBGYN provider - referrals have been provided. we have discussed prompt return precautions including worsening pain, increased vaginal bleeding/clotting, etc. She verbalizes understanding. Patient has remained stable throughout ED visit today. Discussed worrisome signs and symptoms and when to return to the ED. All questions answered at this time. Patient is agreeable with disposition and stable for discharge. Medical Decision Making Medical Decision Making [facility] Narrative: 29 year old female history of reported ectopic last year requiring surgical intervention presents to the ED today for repeat HCG testing. vital signs stable. she is well appearing and in NAD. exam benign. Based on history, physical exam, and ED workup she likely has IUP, less likely threatened . Patient?s presentation is not consistent with ectopic , molar , life-threatening coagulopathy, trauma, serious bacterial infection, central process or other emergency. Plan for CBC, BMP, repeat HCG. Differential Diagnosis Differential Diagnoses: The differential diagnosis associated with the presentation includes as above. Admission/Observation not indicated. Lab Data [facility] Lab Attestation statement: I reviewed the patient's lab results. as above. 06/24/25 09:54 06/24/25 09:54 Labs: Lab Results 06/24/25 Range/Units 09:54 WBC 6.7 (4.8-10.8) X10*3/uL RBC 4.09 L (4.20-5.50) X10*6/uL Hgb 12.4 (12.0-16.0) g/dl Hct 35.4 L (37.0-47.0) % MCV 86.6 (80.0-98.0) fL MCH 30.3 (27.0-33.0) pg MCHC 35.0 (31.0-35.0) g/dl RDW 14.0 (11.0-16.0) % Plt Count 273 (160-400) X10*3/uL MPV 9.2 L (9.4-12.3) fL Immature Gran % (Auto) 0.3 (0.0-0.4) % Neut % (Auto) 60.0 (45-73) % Lymph % (Auto) 31.2 (20-40) % Placer % (Auto) 7.2 (2-11) % Eos % (Auto) 0.9 (0-4) % Baso % (Auto) 0.4 (0-2) % Lymph # (Auto) 2.1 (1.2-4.9) X10*3/uL Placer # (Auto) 0.5 (0.1-1.2) X10*3/uL Eos # (Auto) 0.1 (0.0-0.4) X10*3/uL Baso # (Auto) 0.0 (0.0-0.2) X10*3/uL Abs Immat Gran (auto) 0.02 (0.00-0.03) X10*3/uL Absolute Neuts (auto) 4.0 (2.0-8.3) x10*3/uL Absolute Nucleated RBC 0.000 (0.0-0.012) X10*3/uL Nucleated RBC % (auto) 0.0 (0.0-0.2) /100WBC Sodium 139 (135-145) mmol/L Potassium 4.2 (3.3-5.1) mmol/L Chloride 109 H (96-108) mmol/L Carbon Dioxide 24 (22-29) mmol/L Anion Gap 10 L (12-20) BUN 9 (9-16) mg/dL Creatinine 0.68 (0.5-1.4) mg/dL Estim Creat Clear Calc 119.7 Estimated GFR > 60 Random Glucose 98 (60-115) mg/dL Calcium 8.6 (8.4-10.2) mg/dL Beta HCG, Quant 3072 mIU/mL Independent Interpretation I performed an independent interpretation of an: Ultrasound Interpretation: US 06/22/25 showing IUP Radiology Impression Discussion of test interpretation with radiology: I have reviewed the radiologist's reading. Radiologist Impression: Date of Service: 06/22/25 Procedure(s): US OB pelvic and transvaginal Accession Number(s): [id number] cc: Ivelisse Herrera MD; Ebonie Odell CNP~ EXAMINATION: US OBSTETRICAL ULTRASOUND CLINICAL INFORMATION: 5 weeks , bleeding and pain. HCG 1423 COMPARISON: None relevant. LMP: Unknown.. TECHNIQUE: Ultrasound of the maternal pelvis is performed using transabdominal and transvaginal transducers. Transvaginal imaging is performed due to inadequate visualization transabdominally. M-mode Doppler is also performed. FINDINGS: There is an intrauterine gestational sac within the fundus with good dual decidual reaction, measuring an average diameter of 0.24 cm, corresponding with 4 weeks and 5 days. No yolk sac, and no pole are visualized currently. No detectable heart rate currently. Normal-appearing myometrium and cervix. MATERNAL ADNEXA: The right maternal ovary measures 3.3 x 2.4 x 2.8 cm. Normal sonographic appearance. The left maternal ovary measures 3.2 x 2.7 x 2.1 cm. Normal sonographic appearance. There is no significant maternal adnexal mass. No maternal pelvic ascites. US/US OB pelvic and transvaginal IMPRESSION: 1. Intrauterine gestational sac with good dual decidual reaction in the fundal endometrium. No detectable yolk sac or pole at this time. Average sac diameter is 0.24 cm, corresponding with 4 weeks and 5 days. 2. Normal ovaries bilaterally. No adnexal masses. 3. No free fluid. Electronically signed by: Jt Castro MD 06/22/2025 10:58 AM EDT External Record Review External record reviewed: Inpatient record Social Determinants Patient?s care significantly limited by Social Determinants of Health including: Other Social Determinant of Health Critical Care Time Critical Care Time Critical Care Time: No Discharge Plan Discharge Clinical Impression: Patient Disposition: Home, Self-Care Instructions: (ED) Additional Instructions: You were evaluated in the ED today for repeat hCG levels. Your hCG has doubled in last 48 hours. It is now 3072. This is consistent with an early growing . Your ultrasound two days ago shows a in your uterus which is reassuring. You need to follow up with OBGYN outpatient. I have provided you with a list of providers - please call them to establish prompt care. We have discussed return precautions including: increasing pain, dizziness, fainting, bleeding this is much heavier than a period and you are having large clots bigger than a golf ball. OBGYN and Midwifery [facility] [address] [phone] [facility] [address] [facility] [phone] [facility] [address] [phone] [facility]ery [place] [phone] [facility] [phone] Prescriptions: No Action prednisone 20 mg tablet 20 mg PO BID Qty: 6 0RF cefuroxime axetil 500 mg tablet 500 mg PO BID 10 Days Qty: 20 0RF azithromycin [Zithromax] 250 mg tablet 250 mg PO DAILY 4 Days Qty: 4 0RF Rx Instructions: start on day 2 of therapy oxycodone 5 mg capsule 5 mg PO BID PRN (Reason: pain) Qty: 8 0RF Rx Instructions: Patient can partially filled prescription upon request. valacyclovir 1 gram tablet 1,000 mg PO BID Qty: 14 0RF metronidazole [Vandazole] 0.75 % (37.5mg/5 gram) gel 1 appful vaginal DAILY 5 Days Qty: 70 0RF PNV cmb#95-ferrous fumarate-FA [] 28 mg iron- 800 mcg tablet 1 tab PO DAILY Qty: 30 0RF Referrals: Ivelisse Herrera MD [Primary Care Provider, Internal Medicine] Interventions: ED Discharge Assessment Last Done: 06/24/25 11:22 Discharge Date/Time: 06/24/25 11:25 Print Language: Slovenian
[2025-06-24 10:11] LABS: MANUAL DIFF FLAG NO
[2025-06-24 10:13] VITALS: BP 110/61; PULSE 63; RESP 18; TEMP 36.6; O2SAT 100
[2025-06-24 10:15] LABS: Hematocrit 35.4 % (37.0-47.0); Hemoglobin 12.4 g/dl (12.0-16.0); Imm Gran Abs Auto 0.02 X10*3/uL (0.00-0.03); Imm Gran Pct Auto 0.3 % (0.0-0.4); Lymphocytes Absolute Auto 2.1 X10*3/uL (1.2-4.9); Mean Corpuscular HGB Conc 35.0 g/dl (31.0-35.0); Mean Corpuscular Hemoglobin 30.3 pg (27.0-33.0); Mean Corpuscular Volume 86.6 fL (80.0-98.0); NRBC Abs Auto 0.000 X10*3/uL (0.0-0.012); NRBC Pct Auto 0.0 /100WBC (0.0-0.2); Platelet Count 273 X10*3/uL (160-400); Red Blood Count 4.09 X10*6/uL (4.20-5.50); White Blood Count 6.7 X10*3/uL (4.8-10.8)
[2025-06-24 10:34] LABS: Anion Gap 10 (12-20); Blood Urea Nitrogen 9 mg/dL (9-16); Calcium 8.6 mg/dL (8.4-10.2); Carbon Dioxide 24 mmol/L (22-29); Chloride 109 mmol/L (96-108); Creatinine Clr Calc Pharmacy 119.7; Estimated Glomerular Filt Rate > 60; Potassium 4.2 mmol/L (3.3-5.1); Sodium 139 mmol/L (135-145)
[2025-06-24 11:12] VITALS: BP 115/81; PULSE 71; RESP 18; TEMP 37.1; O2SAT 98
[2025-06-24 11:22] VITALS: BP 115/81; PULSE 71; RESP 18; TEMP 37.1; O2SAT 98
== END 2025-06-24 11:25 | disposition home or self-care (01) ==
PROVIDERS: Physician Assistant Medical; Emergency Provider Emergency Medicine; PCP Internal Medicine
DX: O20.9 Hemorrhage in early pregnancy, unspecified (principal); R10.2 Pelvic and perineal pain
CPT/HCPCS: 36415; 80048; 84702; 85025; 99283

== ENCOUNTER 2025-08-18 12:22 | Emergency (ER) | payer MEDICAID, SELFPAY ==
--- OUTSIDE RECORDS SUMMARY | 2025-08-13 11:50 | XMS_ITS | Encounter Summary ---
Author Organization [facility] Address [address] [place] [address] Phone Care Team Providers Care Nurses Educator Name Role Phone Ivelisse Herrera MD Primary Care Provider Reason for Visit * Reason Comments Routine Visit Encounter Details Date Type Department Care Team (Late st Contact Info) Description 08/13/2025 11:50 AM EDT Routine [facility] [address] [place] [address] Krystyna Posey CNM [address] [facility], [address] [address] [email or web address] [place]: [id number] Social History Tobacco Use Types Packs/Day Years Used Date Smoking Tobacco: Never Smokeless Tobacco: Never Alcohol Use Standard Drinks/Week Comments Not Currently 0 (1 standard drink = 0.6 oz pur e alcohol) Occasionally Education Answer Date Recorded Are you interested [...] or tries to control you? No 03/01/2024 Estimated Date of Delivery Comme nts Yes 02/22/2026 Based on Ultraso und Sex and Gender Information Value Date Recorded Sex Assigned at Female 01/31/2021 10:41 PM EST Legal Sex Female 9:11 AM EDT Gender Identity Female 01/31/2021 10:41 PM EST Sexual Orientation Straight 01/31/2021 10 :41 PM EST Occupation Industry Job Start Date Job End Date stay at home mom Not on file Not on file Not on file documented as of this encounter Last Filed Vital Signs Vital Sign Reading Time Taken Comments Blood Pressure 110/70 08/13/2025 11:58 AM EDT Pulse - - Temperature - - Respiratory Rate - - Oxygen Saturation - - Inhaled Oxygen Concentration - - Weight 77.1 kg (170 lb) 08/13/2025 11:58 AM EDT Height - - Body Mass Index 31.09 03/01/2024 5:51 PM EDT documented in this encounter Progress Notes * Krystyna Posey CNM - 08/13/2025 11:50 AM EDT 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 FOB attended appointment today and agreed with this recommendation.Gave number for central registration so he can create an account; she will send a message for testing to be ordered once that is done. Cocaine use Reports she is stable in her sobriety. Encounter for supervision of normal in first trimester Here with partner, Rodney. Feels fairly nauseated, particularly in the evenings, but does note someimprovement as time passes. Uses doxylamine in the evenings with good effect. Discussed and ordered anatomy scan. Discussed and recommended flu shot, she declines. documented in this encounter Miscellaneous Notes * Assessment & Plan Note - Krystyna Posey CNM - 08/13/2025 1:27 PM EDTAssociated Problem(s): Encounter for supervision of normal in first trimester Here with partner, Rodney. Feels fairly nauseated, particularly in the evenings, but does note someimprovement as time passes. Uses doxylamine in the evenings with good effect. Discussed and ordered anatomy scan. Discussed and recommended flu shot, she declines. * Assessment & Plan Note - Krystyna Posey CNM - 08/13/2025 1:18 PM EDTAssociated Problem(s): Cocaine use Reports she is stable in her sobriety. 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 FOB attended appointment today and agreed with this recommendation.Gave number for central registration so he can create an account; she will send a message for testing to be ordered once that is done. documented in this encounter Plan of Treatment Upcoming Encounters Date Type Department Care Team (Late st Contact Info) Description 09/11/2025 10:30 AM EDT Routine [facility] [address] [place] [address] [place] [address] Katja Santillan CNM [address] [facility], [address] [place] [address] 10/08/2025 10:10 AM EST Appointment [facility] & Midwifery [place]te, OB [address] [place] [address] Krystyna Posey CNM [address] [facility], [address] [place] [id number] [email or web address] 10/08/2025 11:10 AM EST Routine [facility] & Midwifery [address] [place] [address] Krystyna Posey CNM 22 [facility], [address] [address] [email or web address] Scheduled Orders Name Type Priority Associated Diagnoses Orde r Schedule US OB Greater Than 14 Weeks Anatomical Survey Imaging Routine Encounter for supervision of other normal in first trimester Expected: 08/13/2025, Expires: 08/13/2026 documented as of this encounter Procedures Procedure Name Priority Date/Time Associated Diagnosis Comments URINE CULTURE Routine 08/13/2025 12:11 PM EDT Encounter for supervision of other normal in first trimester documented in this encounter Results * (ABNORMAL) Urine Culture (08/13/2025 12:11 PM EDT) Special Requests None 08/13/2025 12:11 PM EDT [facility] Urine Culture >100,000 colony forming units per mL MIXED LÓPEZ (3 OR MORE COLONY TYPES) Culture indicates contamination . 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 It is not the complete legal health record.[facility]
--- OUTSIDE RECORDS SUMMARY | 2025-08-17 16:38 | XMS_ITS | Encounter Summary ---
Author Organization [facility] Address [address] [place] [id number] Phone Care Team Providers Care Dish Washer Name Role Phone Ivelisse Herrera MD Primary Care Provider Reason for Visit * Reason Comments Syncope Encounter Details Date Type Department Care Team (Late st Contact Info) Description 08/17/2025 4:38 PM EDT - 08/17/2025 7:30 PM EDT Emergency [facility] [address] [place] [address] Discharge Disposition: Home or Self Care Social History Tobacco Use Types Packs/Day Years Used Date Smoking Tobacco: Never Smokeless Tobacco: Never Alcohol Use Standard Drinks/Week Comments Not Currently 0 (1 standard drink = 0.6 oz pur e alcohol) Occasionally Education Answer Date Recorded Are you interested in more education? Not on demi e 03/19/2023 Are you concerned about learning? Not on file 03/19/2023 No 03/19/2023 No 03/19/2023 Food Answer Date Recorded Within the past 6 months we worried whether our food would run out before we got money to buy more. Never True 08/17/2025 Within the past 6 months the food we bought just didn't last and we didn't have enough money to get more. Never True Residential Stability Answer Date Recor ded What is your housing situation today? I have saad sing 08/17/2025 How many times have you move d in the past 12 months? Zero (I did not move) 08/17/2025 Paying for Meds Answer Date Recorded Do you have trouble paying for medicines? No 08/17/2025 Paying Utility Bills Answer Date Record ed Do you have trouble paying your heating or elect ricity bill? No 08/17/2025 Transportation Answer Date Recorded Has the lack of transportati on kept you from medical appointments or from getting medications? No 08/17/2025 Digital Access Answer Date Recorded No 08/17/2025 Yes 08/17/2025 Do you have reliable internet access at home? Ye s 08/17/2025 Do you have a device (e.g., phone, tablet, computer) with a working camera? Yes 08/17/2025 Intimate Partner Violence Answer Date R ecorded Are you denied basic needs s uch as food, clothing, or medical care? No 08/17/2025 In the past 12 months have y ou been in a relationship with a person who hurts, threatens, or tries to control you? No 08/17/2025 Are you denied basic needs s uch as food, clothing, or medical care? No 08/17/2025 In the past 12 months have y ou been in a relationship with a person who hurts, threatens, or tries to control you? No 08/17/2025 Estimated Date of Delivery Comme nts Yes [...] Sign Reading Time Taken Comments Blood Pressure 105/63 08/17/2025 7:23 PM EDT Pulse 95 08/17/2025 7:23 PM EDT Temperature 36.6 C (97.8 F) 08/17/2025 7:23 PM EDT Respiratory Rate 16 08/17/2025 5:00 PM EDT Oxygen Saturation 100% 08/17/2025 7:23 PM EDT Inhaled Oxygen Concentration - - Weight 77.1 kg (170 lb) 08/17/2025 2:49 PM EDT Height 157.5 cm (5' 2 ) 08/17/2025 2:49 PM EDT Body Mass Index 31.09 08/17/2025 2:49 PM EDT documented in this encounter Functional Status * Calculated C-SSRS Risk Score (Lifetime/Recent) Answer Date of Assessment Author No Risk Indicated 08/17/2025 2:47 PM EDT Krystyna Munguia, PADILLA * [place] Suicide Severity Rating Scale (Screener/Recent Self-Report) Question Answer Date of Assessment Author 1. Wish to be (Past 1 Month) No 2:47 PM EDT Krystyna Garcia, PADILLA 2. Non-Specific Active Suici majo Thoughts (Past 1 Month) No 08/17/2025 2:47 PM EDT Krystyna Garcia, PADILLA 6. Suicidal Behavior (Lifetime) No 2:47 PM EDT Krystyna Garcia, PADILLA documented as of this encounter Discharge Instructions * Discharge Instructions* Julian Gary PA-C - 08/17/2025 6:20 PM EDT Labs reassuring. EKG without worrisome findings. heart tones within normal limits, lots of movement. Suspect dehydration contributing to your episode today. Drink plenty of fluids particular fluids and electrolytes. Follow-up with OB. Return to the ED with new or worsening symptoms including abdominal pain, vaginal bleeding, chest pain, shortness of breath, persistent dizziness or subsequent episodes of passing out documented in this encounter Medications at Time of Discharge doxylamine (UNISOM, DOXYLAMINE,) 25 mg tabletIndications :Encounter for supervision of other normal in first trimester Take 1 tablet (25 mg total) by mouth nightly at bedtime as needed for nausea. 30 tablet 1 07/18/2025 Medication-Free TextIndications:P renatal vitamin Indications: vitamin vitamin with Ca-Iron-FA ( PLUS) 27 mg iron- 1 mg Tab tabletIndications :Nausea and vomiting during ,Encount er for supervision of other normal in first trimester Take 1 tablet by mouth daily. 30 tablet 9 07/18/2025 documented as of this encounter ED Notes * Kathi Arredondo RN - 08/17/2025 7:29 PM EDT ED Discharge Nursing Note D/c instructions reviewed and understood, pt aware to follow up with pcp and OB. Gait steady and even, iv removed. Pt significant other driving patient home. * Jessica Cameron RN - 08/17/2025 6:30 PM EDT ED Nursing Progress Note Pt is reporting feeling better and states thinks will be ready to be discharged after second liter of fluid. Airway patent, breathing equal and unlabored, awd. * Krystyna Garcia RN - 08/17/2025 2:47 PM EDT Pt here for eval, post syncopal episode x2 while at the [facility]. Pt was brought by ambulance to [facility] but left and came here. Pt has an IV in place from the ambulance team. On arrival, pt is alert and well appearing. EKG done and reviewed by the ED provider. * Julian Gary PA-C - 08/17/2025 2:42 PM EDT Chief Complaint Chief Complaint Patient presents with Syncope History of Present Illness The patient, Kiko Covarrubias,is a 30 y.o. female G3, P0 approximately 13 weeks who presents for evaluation of Syncope The patient reports waiting in line at the [facility] today when she got dizzy, felt cold, and her vision went dark and she blacked out. This happened twice in quick succession. EMS evaluated her and she was brought to [facility] though did not want to be there so she left and came here. Last night reports episode of nausea and vomiting at approximately 10 PM. Minimal oral intake today. Has had periodic vomiting in her though not daily. Denies feeling nauseous presently Denies abdominal pain, dysuria, hematuria, vaginal bleeding or discharge. Denies fever or chills. Denies chest pain, palpitations, shortness of breath, lower extremity pain or swelling. Only medication is vitamins. No complications during previous pregnancies. Unless otherwise specified, I have reviewed and agree with the triage and nursing notes. ROS A ten point review of systems was negative except what was noted in the HPI. Review of Systems Past Medical History Past Medical History: Diagnosis Date Anxiety History of depression Pt hospitalized for anxiety and depression 05/2025. Zari has a a therapist at [facility] and Psychiatrist Dr Ashley Lieberman. early teens, took meds, had counseling Hx of abnormal cervical Pap smear 08/12/2020 [facility] Hx of chlamydia infection 07/30/2020 hemorrhage 01/03/2014 had blood transfusion Past Surgical History No past surgical history on file. Home Medications Prior to Admission medications Medication Sig doxylamine (UNISOM, DOXYLAMINE,) 25 mg tablet 25 mg, Oral, Nightly PRN Medication-Free Text Indications: vitamin vitamin with Ca-Iron-FA ( PLUS) 27 mg iron- 1 mg Tab tablet 1 tablet, Oral, Daily Allergies Allergies Allergen Reactions Shrimp Social and Family History Social History Tobacco Use Smoking status: Never Smokeless tobacco: Never Substance Use Topics Alcohol use: Not Currently Comment: Occasionally Social History Substance and Sexual Activity Drug Use Not Currently Types: Marijuana, Cocaine Comment: Was using Cocaine and Marijuana stopped 06/03/25. Family History Problem Relation Age of Onset Depression Father Bipolar disorder Father depression Mother Cleft palate Son Physical Exam Vital Signs: ED Triage Vitals [08/17/25 1449] Encounter Vitals Group BP 103/64 Systolic BP Percentile Diastolic BP Percentile Heart Rate (!) 104 Respiratory Rate 16 Temperature 36.8 ??C (98.2 ??F) Temp Source Temporal SpO2 97 % Weight 170 lb Height 5' 2 Head Circumference Peak Flow Pain Score Pain Loc Pain Education Exclude from Growth Chart Physical Exam Vitals and nursing note reviewed. HENT: Head: Normocephalic and atraumatic. Cardiovascular: Rate and Rhythm: Normal rate. Pulmonary: Effort: Pulmonary effort is normal. No respiratory distress. Comments: No adventitious lung sounds or tachypnea Abdominal: Comments: Gravid abdomen is soft and nontender Musculoskeletal: General: Normal range of motion. Cervical back: Normal range of motion. Comments: No lower extremity edema, equal distal pulses, no calf tenderness or palpable cord Skin: General: Skin is warm and dry. Neurological: Mental Status: She is alert. Comments: Gait, balance, coordination intact Psychiatric: Mood and Affect: Mood normal. Behavior: Behavior normal. Thought Content: Thought content normal. Judgment: Judgment normal. Laboratory Testing Results for orders placed or performed during the hospital encounter of 08/17/25 POCT Glucose Result Value Ref Range Glucose, POCT 111 (H) 70 - 100 mg/dL POCT Glucose Result Value Ref Range Glucose 111 (*) 70 - 100 mg/dL Magnesium Result Value Ref Range MAGNESIUM 1.7 1.6 - 2.6 mg/dL Troponin Result Value Ref Range Troponin-T, HS Gen5 <6 0 - 9 ng/L NT-proBNP Result Value Ref Range NT-PROBNP <36 0 - 125 pg/mL LFTs (hepatic panel) Result Value Ref Range ALKALINE PHOSPHATASE 63 39 - 117 U/L TOTAL BILIRUBIN 0.3 0.0 - 1.2 mg/dL DIRECT BILIRUBIN <0.1 0.0 - 0.2 mg/dL Bilirubin (Indirect) NOT CALCULATED 0 - 1.5 mg/dL AST 17 0 - 37 U/L ALT 9 0 - 40 U/L TOTAL PROTEIN 7.1 6.5 - 8.0 g/dL ALBUMIN 3.7 (L) 3.9 - 4.8 g/dL GLOBULIN 3.4 1 - 4.8 g/dL A/G Ratio 1.09 1.00 - 4.80 RATIO Troponin Specimen: Blood Result Value Ref Range Troponin-T, HS Gen5 <6 0 - 9 ng/L LFTs (hepatic panel) Result Value Ref Range ALKALINE PHOSPHATASE 62 39 - 117 U/L TOTAL BILIRUBIN 0.3 0.0 - 1.2 mg/dL DIRECT BILIRUBIN <0.1 0.0 - 0.2 mg/dL Bilirubin (Indirect) NOT CALCULATED 0 - 1.5 mg/dL AST 15 0 - 37 U/L ALT 9 0 - 40 U/L TOTAL PROTEIN 7.0 6.5 - 8.0 g/dL ALBUMIN 3.5 (L) 3.9 - 4.8 g/dL GLOBULIN 3.5 1 - 4.8 g/dL A/G Ratio 1.00 1.00 - 4.80 RATIO Urinalysis w/reflex Urine Culture Specimen: Urine Result Value Ref Range COLOR Yellow Yellow CLARITY Clear GLUCOSE Negative Negative BILI Negative Negative KETONES Trace (*) Negative SPECIFIC GRAVITY 1.020 1.005 - 1.030 BLOOD Negative Negative PH 6.0 5.0 - 8.0 Protein-UA Negative Negative NITRITE Negative Negative Leukocyte esterase, ur Negative Negative HCG (Quantitative, Blood) Specimen: Blood Result Value Ref Range HCG BETA 109,546.0 mIU/mL CBC and differential Specimen: Blood Result Value Ref Range WBC 13.21 (H) 4.00 - 11.00 K/uL RBC 3.88 (L) 4.00 - 5.20 M/uL HGB 11.9 (L) 12.0 - 16.0 g/dL HCT 34.9 (L) 36.0 - 46.0 % PLT 282 150 - 450 K/uL MCV 89.9 80.0 - 100.0 fL MCH 30.7 27.0 - 31.0 pg MCHC 34.1 32.0 - 36.0 g/dL RDW 13.8 11.5 - 14.5 % MPV 9.3 8.4 - 12.0 fL NRBC 0.00 0.00 /100 WBCs ABSOLUTE NRBC 0.00 0.00 K/uL DIFF METHOD Auto NEUTS 81.1 (H) 48.0 - 76.0 % LYMPHS 11.6 (L) 18.0 - 41.0 % MONOS 6.1 4.0 - 11.0 % EOS 0.5 0.0 - 5.0 % BASOS 0.2 0.0 - 1.5 % Granulocytes, immature (%) 0.5 0.0 - 0.9 % ABSOLUTE NEUTS 10.72 (H) 1.92 - 7.60 K/uL ABSOLUTE LYMPHS 1.53 0.72 - 4.10 K/uL ABSOLUTE MONOS 0.80 0.16 - 1.10 K/uL ABSOLUTE EOS 0.06 0.00 - 0.50 K/uL ABSOLUTE BASOS 0.03 0.00 - 0.15 K/uL Granulocytes, immature 0.07 0.00 - 0.09 K/uL Basic metabolic panel Specimen: Blood Result Value Ref Range SODIUM 136 133 - 146 mmol/L CHLORIDE 103 96 - 108 mmol/L POTASSIUM 3.8 3.3 - 5.1 mmol/L CO2 20 (L) 21 - 35 mmol/L BUN 8 6 - 19 mg/dL CREATININE 0.60 0.5 - 1.5 mg/dL GLUCOSE 93 70 - 99 mg/dL CALCIUM 9.1 8.4 - 10.3 mg/dL EGFR >120 >59 mL/min/1.73m2 ANION GAP 17 10 - 20 mmol/L Radiology Testing Bedside Ultrasound ED Medication from 08/17/2025 1442 to 08/17/20251923 Date/Time Order Dose Route Action Action by Comments 08/17/2025 1709 EDT lactated ringers IV Bolus 1,000 mL 1,000 mL Intravenous New Bag Jessica Cameron RN -- 08/17/2025 1826 EDT lactated ringers IV Bolus 1,000 mL 0 mL Intravenous Stopped Jessica Cameron RN -- 08/17/2025 182 EDT lactated ringers IV Bolus 1,000 mL 1,000 mL Intravenous New Bag Jessica Cameron RN -- 08/17/2025 192 EDT lactated ringers IV Bolus 1,000 mL 0 mL Intravenous Stopped Kathi Arredondo,PADILLA -- [facility] MDM Differential diagnosis includes orthostatic hypotension, electrolyte abnormality, nausea and vomiting in Low clinical suspicion for ACS, PE, labor, Patient seen and evaluated, vital signs noted tachycardia and blood pressure 103/64 on arrival, otherwise unremarkable. Presenting for evaluation reporting syncope in the setting of a 30-year-old G3,P2 approximately 13 weeks reports poor oral intake today with episode of nausea and vomiting last night. Benign belly, no evidence of fluid overload or respiratory distress, nontoxic-appearing. Nursing staff had some difficulty with heart tones, this was obtained via bedside ultrasound with heart tones of 154 with lots of movement. EKG was obtained sinus tachycardia 102 bpm, no acute ischemia or infarct, labs reassuring without elevated troponin or BNP, CBC with leukocytosis to 13 with left shift, unclear if this is reactive to vomiting or related to , low suspicion for infectious process, there is no renal insufficiency, electrolytes within normal limits. Treated with 1 L of lactated Ringer's, continue to feel dizzy with standing, will treat with subsequent liter and reassess. ED Course as of 08/17/251923Aug 17, 20251922 Improving symptoms after second liter, comfortable with discharge at this time. [AM] ED Course User Index [AM] Julian Gary PA-C Clinical Impressions as of 08/17/251923 Syncope and collapse 13 weeks gestation of Critical Care Time: 0 minutes Clinical Impression Diagnosis Description Comment Final diagnoses Syncope and collapse Syncope and collapse -- 13 weeks gestation of 13 weeks gestation of -- Disposition: Home Julian Gary PA-C 08/17/251923 documented in this encounter Plan of Treatment Upcoming Encounters Date Type Department Care Team (Late st Contact Info) Description 09/11/2025 10:30 AM EDT Routine [facility] [address] [place] [address] [place] [address] Katja Santillan [address] [address] 10/08/2025 10:10 AM EST Appointment [facility] [address] [place] [address] Krystyna Posey [address] [address] 10/08/2025 11:10 AM EST Routine [facility] [address] [place] [address] [place] [address] Krystyna Posey [address] [address] Pending Results Name Type Priority Associated Diagnoses Date /Time Bedside Ultrasound Imaging Routine 2024 5:04 PM EDT Scheduled Orders Name Type Priority Associated Diagnoses Orde r Schedule Lab Add On: magnesium Lab STAT Onc e for 1 Occurrences starting 08/17/2025 until 08/17/2025 documented as of this encounter Procedures Procedure Name Priority Date/Time Associated Diagnosis Comments TROPONIN STAT 08/17/2025 5:41 PM EDT US BEDSIDE Routine 08/17/2025 5:04 PM EDT URINALYSIS W/REFLEX URINE CULTURE STAT 08/17/2025 4:44 PM EDT LFTS (HEPATIC PANEL) Routine 08/17/2025 4:01 PM EDT HCG (QUANTITATIVE, BLOOD) STAT 08/17/2025 4:01 PM EDT TROPONIN Routine 08/17/2025 4:01 PM EDT NT-PROBNP Routine 08/17/2025 4:01 PM EDT POCT GLUCOSE STAT 08/17/2025 3:30 PM EDT POCT GLUCOSE Routine 08/17/2025 3:29 PM EDT ECG 12-LEAD STAT 08/17/2025 3:25 PM EDT LFTS (HEPATIC PANEL) Routine 08/17/2025 3:00 PM EDT CBC AND DIFFERENTIAL STAT 08/17/2025 3:00 PM EDT MAGNESIUM Routine 08/17/2025 3:00 PM EDT BASIC METABOLIC PANEL STAT 08/17/2025 3:00 PM EDT documented in this encounter Results * Troponin (08/17/2025 5:41 PM EDT) Troponin-T, HS Gen5 <6 0 - 9 ng/L [facility] Blood 08/17/2025 5:41 PM EDT 08/17/2025 6:00 PM EDT us Julian Gary PA-C LAB BLOOD ORDERABLES Final Re sult [address] [address] * (ABNORMAL) Urinalysis w/reflex Urine Culture (08/17/2025 4:44 PM EDT) COLOR Yellow Yellow [facility] CLARITY Clear [facility] GLUCOSE Negative Negative [facility] BILI Negative Negative [facility] KETONES Trace(A) Negative [facility] SPECIFIC GRAVITY 1.020 1.005 - 1.030 [facility] BLOOD Negative Negative [facility] PH 6.0 5.0 - 8.0 [facility] Protein-UA Negative Negative [facility] NITRITE Negative Negative [facility] Leukocyte esterase, ur Negative Negative [facility] Urine (Urine) 08/17/2025 4:4 4 PM EDT 08/17/2025 5:05 PM EDT us Estefania Bernal MD URINE ORDERABLES Final Re sult Performing Organization Address City/[facility]/ZIP Co de Phone Number [address] [address] * Troponin (08/17/2025 4:01 PM EDT) Troponin-T, HS Gen5 <6 0 - 9 ng/L [facility] 08/17/2025 4:01 PM EDT 08/17/2025 4:20 PM EDT us Estefania Bernal MD LAB BLOOD ORDERABLES Luciana l Result [address] [address] * NT-proBNP (08/17/2025 4:01 PM EDT) NT-PROBNP <36 0 - 125 pg/mL [facility] 08/17/2025 4:01 PM EDT 08/17/2025 4:20 PM EDT Estefania Bernal MD LAB BLOOD ORDERABLES Luciana l Result Performing Organization Address City/State/[facility] Co de Phone Number [address] [address] * (ABNORMAL) LFTs (hepatic panel) (08/17/2025 4:01 PM EDT) Pathologist [facility] ALKALINE PHOSPHATASE 63 39 - 117 U/L [facility] TOTAL BILIRUBIN 0.3 0.0 - 1.2 mg/dL [facility] DIRECT BILIRUBIN <0.1 0.0 - 0.2 mg/dL [facility] Bilirubin (Indirect) NOT CALCULATED 0 - 1.5 mg/dL [facility] AST 17 0 - 37 U/L [facility] ALT 9 0 - 40 U/L [facility] TOTAL PROTEIN 7.1 6.5 - 8.0 g/dL [facility] ALBUMIN 3.7(L) 3.9 - 4.8 g/dL [facility] GLOBULIN 3.4 1 - 4.8 g/dL [facility] A/G Ratio 1.09 1.00 - 4.80 RATIO [facility] 08/17/2025 4:01 PM EDT 08/17/2025 4:20 PM EDT Estefaina Bernal MD LAB BLOOD ORDERABLES Luciana l Result [address] [address] * HCG (Quantitative, Blood) (08/17/2025 4:01 PM EDT) [facility] HCG BETA 109,546.0 mIU/mL [facility] Comment: Interpretation: FEMALE: Negative: Less than or equal to 1 mIU/mL. 4 Weeks Post Conception: 9.5 - 750 mIU/mL. 12 Weeks Post Conception: [id number] - [id number] mIU/mL. Test Methodology Pierre [id number] Patient results determined by assays using different manufacturers or methods may not be comparable. Blood 08/17/2025 4:01 PM EDT 08/17/2025 4:20 PM EDT us Estefania Bernal MD LAB BLOOD ORDERABLES Luciana l Result Performing Organization Address City/[facility] Co de Phone Number [address] [address] * (ABNORMAL) POCT Glucose (08/17/2025 3:30 PM EDT) Glucose 111(A) 70 - 100 mg/dL 08/17/2025 3:30 PM EDT us Ravi Mcdermott MD POINT OF CARE TEST ORDER JOLANTA Final Result * (ABNORMAL) POCT Glucose (08/17/2025 3:29 PM EDT) Pathologist [facility] Glucose, POCT 111(H) 70 - 100 mg/dL [facility] 08/17/2025 3:29 PM EDT 08/17/2025 3:32 PM EDT us Unknown Unknown POINT OF CARE TEST ORDERABLES Final Result Performing Organization Address [facility] Co de Phone Number [address] [address] * ECG 12-LEAD (08/17/2025 3:25 PM EDT) Ventricular Rate EKG/MIN 102 BPM [facility] Atrial Rate 102 BPM [facility] NV Interval 136 ms [facility] QRS Duration 74 ms [facility] QT Interval 336 ms [facility] QTC Interval 437 ms [facility] P [place] 62 degrees [facility] R Wave [place] 44 degrees [facility] T Wave [place] 33 degrees [facility] 08/17/2025 3:25 PM EDT 08/18/2025 12:40 PM EDT Narrative [facility] - 08/18/2025 12:40 PM EDT Sinus tachycardia Otherwise normal ECG No previous ECGs available Confirmed by Roshan Avery ([id number]) on 08/18/2025 12:40:45 PM us Ravi Mcdermott MD ECG ORDERABLES Final Re sult Performing Organization Address City/[facility]/ZIP Co de Phone Number [facility] * Magnesium (08/17/2025 3:00 PM EDT) MAGNESIUM 1.7 1.6 - 2.6 mg/dL [facility] 08/17/2025 3:00 PM EDT 08/17/2025 3:05 PM EDT us Ravi Mcdermott MD LAB BLOOD ORDERABLES Fin al Result Performing Organization Address [facility] Co de Phone Number [address] [address] * (ABNORMAL) LFTs (hepatic panel) (08/17/2025 3:00 PM EDT) ALKALINE PHOSPHATASE 62 39 - 117 U/L [facility] TOTAL BILIRUBIN 0.3 0.0 - 1.2 mg/dL [facility] DIRECT BILIRUBIN <0.1 0.0 - 0.2 mg/dL [facility] Bilirubin (Indirect) NOT CALCULATED 0 - 1.5 mg/dL [facility] AST 15 0 - 37 U/L [facility] ALT 9 0 - 40 U/L [facility] TOTAL PROTEIN 7.0 6.5 - 8.0 g/dL [facility] ALBUMIN 3.5(L) 3.9 - 4.8 g/dL [facility] GLOBULIN 3.5 1 - 4.8 g/dL [facility] A/G Ratio 1.00 1.00 - 4.80 RATIO [facility] 08/17/2025 3:00 PM EDT 08/17/2025 3:05 PM EDT us Ravi Mcdermott MD LAB BLOOD ORDERABLES Fin al Result Performing Organization Address City/[facility] Co de Phone Number [address] [place] [address] * (ABNORMAL) CBC and differential (08/17/2025 3:00 PM EDT) WBC 13.21(H) 4.00 - 11.00 K/uL [facility] RBC 3.88(L) 4.00 - 5.20 M/uL [facility] HGB 11.9(L) 12.0 - 16.0 g/dL [facility] HCT 34.9(L) 36.0 - 46.0 % [facility] PLT 282 150 - 450 K/uL [facility] MCV 89.9 80.0 - 100.0 fL [facility] MCH 30.7 27.0 - 31.0 pg [facility] MCHC 34.1 32.0 - 36.0 g/dL [facility] RDW 13.8 11.5 - 14.5 % [facility] MPV 9.3 8.4 - 12.0 fL [facility] NRBC 0.00 0.00 /100 WBCs [facility] ABSOLUTE NRBC 0.00 0.00 K/uL [facility] DIFF METHOD Auto [facility] NEUTS 81.1(H) 48.0 - 76.0 % [facility] LYMPHS 11.6(L) 18.0 - 41.0 % [facility] MONOS 6.1 4.0 - 11.0 % [facility] EOS 0.5 0.0 - 5.0 % [facility] BASOS 0.2 0.0 - 1.5 % [facility] Granulocytes, immature (%) 0.5 0.0 - 0.9 % [facility] ABSOLUTE NEUTS 10.72(H) 1.92 - 7.60 K/uL [facility] ABSOLUTE LYMPHS 1.53 0.72 - 4.10 K/uL [facility] ABSOLUTE MONOS 0.80 0.16 - 1.10 K/uL [facility] ABSOLUTE EOS 0.06 0.00 - 0.50 K/uL [facility] ABSOLUTE BASOS 0.03 0.00 - 0.15 K/uL [facility] Granulocytes, immature 0.07 0.00 - 0.09 K/uL [facility] Blood 08/17/2025 3:00 PM EDT 08/17/2025 3:05 PM EDT us Ravi Mcdermott MD LAB BLOOD ORDERABLES Nate mathias Result Performing Organization Address [facility] Co de Phone Number [address] [address] * (ABNORMAL) Basic metabolic panel (08/17/2025 3:00 PM EDT) SODIUM 136 133 - 146 mmol/L [facility] CHLORIDE 103 96 - 108 mmol/L [facility] POTASSIUM 3.8 3.3 - 5.1 mmol/L [facility] CO2 20(L) 21 - 35 mmol/L [facility] BUN 8 6 - 19 mg/dL [facility] CREATININE 0.60 0.5 - 1.5 mg/dL [facility] GLUCOSE 93 70 - 99 mg/dL [facility] CALCIUM 9.1 8.4 - 10.3 mg/dL [facility] EGFR >120 >59 mL/min/1.7 3m2 [facility] Comment:Estimated glomerular filtration rate calculated using the CKD-EPI refit equation. ANION GAP 17 10 - 20 mmol/L [facility] Blood 08/17/2025 3:00 PM EDT 08/17/2025 3:05 PM EDT us Ravi Mcdermott MD LAB BLOOD ORDERABLES Fin mey Result Performing Organization Address [facility] Co de Phone Number [address] [address] documented in this encounter Visit Diagnoses Diagnosis Syncope and collapse- Primary 13 weeks gestation of documented in this encounter Administered Medications Inactive Administered Medications - up to 3 most recent administrations Medication Order MAR Action Action Date Dose Rate Site lactated ringers IV Bolus 1,000 mL 1,000 mL, Intravenous, Administer over 30 Minutes, Once, On Wed08/17/25 at 1715, For 1 dose New Bag 08/17/2025 5:09 PM EDT 1,000 mL 2000 mL/hr lactated ringers IV Bolus 1,000 mL 1,000 mL, Intravenous, Administer over 30 Minutes, Once, On Wed08/17/25 at 1830, For 1 dose New Bag 08/17/2025 6:28 PM EDT 1,000 mL 2000 mL/hr documented in this encounter Active and Recently Administered Medications Times are shown in EDT. Scheduled Medication Order 08/15/2025 08/16/2025 08/17/2025 lactated ringers IV Bolus 1,000 mL (COMPLETED) 1,000 mL, Intravenous, Administer over 30 Minutes, Once, On Wed08/17/25 at 1715, For 1 dose 1709 (New Bag - Prov ider: Jessica Cameron RN)1826 (Stopped - Provider: Jessica Cameron RN) lactated ringers IV Bolus 1,000 mL (COMPLETED) 1,000 mL, Intravenous, Administer over 30 Minutes, Once, On Wed08/17/25 at 1830, For 1 dose 1828 (New Bag - Prov ider: Jessica Cameron RN)1923 (Stopped - Provider: Kathi Arredondo RN) documented in this encounter Care Teams Dish Washer Relationship Specialty Start Date End Date Ivelisse Herrera MD [address] [place] [address] [place] [phone] PCP - General Internal Medicine 03/01/24 documented as of this encounter Additional Source Comments The information contained in this document represents components of the legal health record. It is not the complete legal health record.[facility]
--- OUTSIDE RECORDS SUMMARY | 2025-08-17 17:05 | XMS_ITS | Encounter Summary ---
Author Organization Formerly [facility] Address [address] [place] [phone] Phone Care Team Providers Care Hard Rock Miner Blasting Name Role Phone Ivelisse Herrera MD Primary Care Provider Encounter Details Date Type Department Care Team (Late st Contact Info) Description 08/17/2025 5:05 PM EDT Ancillary Procedure [address] [address] Julian Gary PA-C [address] [place] [id number] [email or web address] Arrived Social History Tobacco Use Types Packs/Day Years [...] on file documented as of this encounter Functional Status * Calculated C-SSRS Risk Score (Lifetime/Recent) Answer Date of Assessment Author No Risk Indicated 08/17/2025 2:47 PM EDT Krystyna Smith, RN * [place] Suicide Severity Rating Scale (Screener/Recent Self-Report) Question Answer Date of Assessment Author 1. Wish to be (Past 1 Month) No 09/26/2 025 2:47 PM EDT Krystyna Garcia, RN 2. Non-Specific Active Suici majo Thoughts (Past 1 Month) No 08/17/2025 2:47 PM EDT Krystyna Garcia, RN 6. Suicidal Behavior (Lifetime) No 2:47 PM EDT Krystyna Garcia, RN documented as of this encounter Plan of Treatment Upcoming Encounters Date Type Department Care Team (Late st Contact Info) Description 09/11/2025 10:30 AM EDT Routine [facility] [address] [place] [address] [address], [address] [address] 10/08/2025 10:10 AM EST Appointment [facility] [address], [address] [place] [address] [address] Posey [address], [address] [address] 10/08/2025 11:10 AM EST Routine [facility] [address] [place] [address] [place] [address] Krystyna Posey [address], [address] [address] Pending Results Name Type Priority Associated Diagnoses Date /Time Bedside Ultrasound Imaging Routine 2024 5:04 PM EDT documented as of this encounter Procedures Procedure Name Priority Date/Time Associated Diagnosis Comments US BEDSIDE Routine 08/17/2025 5:04 PM EDT documented in this encounter Visit Diagnoses Not on filedocumented in this encounter Care Teams Hard Rock Miner Blasting Relationship Specialty Start Date End Date Ivelisse Herrera MD [address] [place] [address] [place] [id number] PCP - General Internal Medicine 03/01/24 documented as of this encounter Additional Source Comments The information contained in this document represents components of the legal health record. It is not the complete legal health record.[facility]
--- NOTE | 2025-08-18 12:25 | ECG_ITS ---
Test Reason : syncope Blood Pressure : */* mmHG Vent. Rate : 87 BPM Atrial Rate : 87 BPM P-R Int : 140 ms QRS Dur : 78 ms QT Int : 362 ms P-R-T Axes : 58 35 38 degrees QTcB Int : 435 ms Normal sinus rhythm Normal ECG No previous ECGs available Referred By: Lilliam Stevenson Electronically Signed By: Elpidio Kwan
[2025-08-18 12:48] VITALS: BP 137/75; PULSE 90; RESP 16; TEMP 36.8; O2SAT 100; BMI 13.9
--- NOTE | 2025-08-18 12:52 | ED_ITS ---
HPI - General Adult General Chief complaint: Syncope Stated complaint: Syncope Time Seen by Provider: 08/18/25 15:03 History of Present Illness ED Provider: Eulalia MAGUIRE narrative: The patient is a 30-year-old female who is approximately 13 weeks . She says this is her 4th . She has 2 children and she said her 3rd ended in a miscarriage. The patient says that she has had some nausea associated with this . She says yesterday she felt unwell. She was at the [facility]. She apparently had 2 syncopal episodes at the [facility] yesterday. Apparently an ambulance was called and she was taken to [facility] by ambulance from the [facility] (this was done at her request because she is receiving her OB care at that hospital). She says that at the [facility] emergency room she received 2 bags of IV fluids. She says they had trouble finding a heart rate but that they were able to visualize the fetus by ultrasound and see movements. She was discharged from the emergency room at [facility] yesterday. This morning at around breakfast time at home she had another syncopal episode. She came to the hospital because of this. She has had no vaginal discharge. No vaginal bleeding. A very vague sense of abdominal discomfort but no real abdominal pain. She says that she has nausea that she considers unusual. She says that she just does not feel very well. No fever, sweats, chills. No cough or sputum. No diarrhea. No chest pain. No shortness of breath. No pleuritic pain. Related Data Previous Rx's ?Medication ?Instructions ?Recorded prednisone 20 mg tablet 20 mg PO BID #6 tabs 2 azithromycin 250 mg tablet 250 mg PO DAILY 4 days #4 t abs 02/08/22 (Zithromax) cefuroxime axetil 500 mg tablet 500 mg PO BID 10 days #20 tabs 02/08/22 oxycodone 5 mg capsule 5 mg PO BID PRN pain #8 caps 02/08/22 valacyclovir 1 gram tablet 1,000 mg PO BID #14 tabs metronidazole 0.75 % (37.5 mg/5 1 appful vaginal DAILY 5 days #70 06/22/25 gram) vaginal gel (Vandazole) grams vit no.95-ferrous 1 tab PO DAILY #30 tabs 12/16 fumarate 28 mg-folic acid 800 mcg tablet () Allergies Allergy/AdvReac Type Severity Reaction Status Date / Time shrimp (SHRIMP) Allergy Intermediate FACIAL Verified 08/18/25 12:50 SWELLING Review of Systems 2 Review of Systems: Yes all other systems are reviewed and are negative [facility] Social History Social History Alcohol intake: current Alcohol intake frequency: holidays/special occasions only Alcohol type: hard liquor Patient Tobacco Use Status: Never used Tobacco Substance Use Type: Marijuana Advance Directives: No Advance Directives Information Provided: No Patient : Yes Physical Exam ED Vital Signs: Vital Signs - 24 hr 08/18/25 12:48 08/18/25 15:24 08/18/25 15:24 Temperature 98.3 F Pulse Rate 90 70 Respiratory Rate 16 16 Blood Pressure 137/75 102/72 Pulse Oximetry 100 99 99 Oxygen Delivery Method Room Air Room Air Room Air 08/18/25 15:42 08/18/25 16:52 Temperature 98.2 F 98.2 F Pulse Rate 78 78 Respiratory Rate 20 20 Blood Pressure 106/65 106/65 Pulse Oximetry 100 100 Oxygen Delivery Method Room Air Room Air BMI result Body Mass Index 13.9 Const Other: The patient is awake and alert. She has a somewhat anxious demeanor but she does not seem in acute distress. Orientation/consciousness: patient oriented x3 HENMT Other: The face is symmetrical. ?Mucous membranes moist. Eyes Other: Pupils are round equal, conjunctivae are clear, extraocular movements intact Neck Neck: Yes normal visual inspection and Yes full ROM Resp Effort & Inspection: normal respiratory effort Auscultation: clear to auscultation bilaterally Cardio Rate: regular rate Rhythm: regular rhythm Heart sounds: S1 normal heart sound present and S2 normal heart sound present GI Other: The abdomen is soft and nontender. Skin Other: Skin is dry and unremarkable General skin exam: no rashes or lesions noted Neuro General: patient oriented x3, tone normal, moves all extremities, no focal motor deficits and CN's II-XI intact bilaterally Extrem Other: There is no calf swelling or tenderness. No asymmetry. No peripheral edema. Course Course Course Narrative: This is a rapid medical exam performed by Trent Stevenson NP: Additional HPI, ROS, PE not included below will be deferred to primary provider. Patient is a 30-year-old female currently presenting to the emergency department with report of 2 syncopal episodes while at the [facility] yesterday. States 1 occurred right after arrival, denies alcohol or drug ingestion, does not feel she was dehydrated. She was assisted to the ground, denies head strike. Denies any vaginal bleeding or other discharge. Reports mild abdominal cramping. Plan: Labs, UA Medications Administered Discontinued Medications Generic Name Dose Route Start Last Admin Trade Name Vijay PRN Reason Stop Dose Admin Lactated Ringer's 1,000 mls @ 999 mls/hr 08/18/25 15:30 08/18/25 16:30 Lr IV 08/18/25 16:30 Infused .Q1H1M HALINA Infusion Medical Decision Making Medical Decision Making [facility] Narrative: The patient is a 30-year-old female who is approximately 13 weeks . she is receiving her care through [facility]. She reports experiencing 2 syncopal episodes yesterday. She went by ambulance to [facility] where she was evaluated and discharged. Today she had another syncopal episode and feels generally unwell but has no definite complaint of fever or chest pain or shortness of breath or significant abdominal pain. No vaginal symptoms, particularly no vaginal bleeding or discharge. She has unremarkable vital signs. She has a normal EKG. She has no chest pain or shortness of breath or pleuritic pain. Her abdomen is entirely benign. No vaginal discharge or bleeding. Laboratory exam is unremarkable. A review of old testing indicates that she is Rh positive. The patient was given 1 L of IV fluids and seemed to feel better. She declined any medication for nausea. She does not seem to be obviously acutely ill. I do not have any significant suspicion for any dangerous process. I do not think there his any obvious suggestion of a possible miscarriage. She has mild anemia which I suspect this is a physiologic finding given her . Her beta hCG is 117,000. her electrolytes are unremarkable. Clinically she looks well. She will be discharged to follow up with her OBGYN provider at [facility] next week. Lab Data 08/18/25 14:21 08/18/25 14:21 Labs: Lab Results 08/18/25 08/18/25 08/18/25 Range/Units 14:18 14:21 14:23 WBC 9.5 (4.8-10.8) X10*3/uL RBC 3.72 L (4.20-5.50) X10*6/uL Hgb 11.5 L (12.0-16.0) g/dl Hct 32.3 L (37.0-47.0) % MCV 86.8 (80.0-98.0) fL MCH 30.9 (27.0-33.0) pg MCHC 35.6 H (31.0-35.0) g/dl RDW 13.7 (11.0-16.0) % Plt Count 271 (160-400) X10*3/uL MPV 9.2 L (9.4-12.3) fL Immature Gran % (Auto) 0.1 (0.0-0.4) % Neut % (Auto) 65.8 (45-73) % Lymph % (Auto) 23.4 (20-40) % [place] % (Auto) 9.1 (2-11) % Eos % (Auto) 1.4 (0-4) % Baso % (Auto) 0.2 (0-2) % Lymph # (Auto) 2.2 (1.2-4.9) X10*3/uL [place] # (Auto) 0.9 (0.1-1.2) X10*3/uL Eos # (Auto) 0.1 (0.0-0.4) X10*3/uL Baso # (Auto) 0.0 (0.0-0.2) X10*3/uL Abs Immat Gran (auto) 0.01 (0.00-0.03) X10*3/uL Absolute Neuts (auto) 6.3 (2.0-8.3) x10*3/uL Absolute Nucleated RBC 0.000 (0.0-0.012) X10*3/uL Nucleated RBC % (auto) 0.0 (0.0-0.2) /100WBC Sodium 137 (135-145) mmol/L Potassium 3.8 (3.3-5.1) mmol/L Chloride 110 H (96-108) mmol/L Carbon Dioxide 21 L (22-29) mmol/L Anion Gap 10 L (12-20) BUN 4 L (9-16) mg/dL Creatinine 0.52 (0.5-1.4) mg/dL Estim Creat Clear Calc 90.4 Estimated GFR > 60 POC Glucose 84 (60-115) mg/dL Random Glucose 79 (60-115) mg/dL Calcium 9.0 (8.4-10.2) mg/dL Magnesium 1.8 (1.6-2.6) mg/dL Total Bilirubin 0.3 (0.0-1.0) mg/dL AST 19 (5-31) U/L ALT 10 (0-31) U/L Alkaline Phosphatase 58 (39-117) U/L Total Protein 6.7 (6.5-8.0) g/dL Albumin 3.7 (3.5-5.0) g/dL Beta HCG, Quant 570384 mIU/mL Urine Color Yellow Urine Appearance Clear Urine pH 7.5 (5.0-9.0) Ur Specific [place] 1.015 (1.005-1.025) Urine Protein Negative (Neg-Trace) mg/dL Urine Glucose (UA) Negative (Negative) mg/dL Urine Ketones Negative (Negative) mg/dL Urine Blood Negative (Negative) Urine Nitrite Negative (Negative) Ur Leukocyte Esterase Trace H (Negative) Urine RBC 0-2 (0-2) /HPF Urine WBC 0-5 (0-5) /HPF Ur Squamous Epith Cells >20 (0-2) /HPF Urine Bacteria 1+ (None Seen) Hyaline Casts 0-2 (0-2) /LPF COVID-19 (ANDI) Negative (Negative) COVID-19 Clin Com See Note Influenza Type A (JIMMY) Negative (Negative) Influenza Type B (JIMMY) Negative (Negative) Influenza A & B Note See Note Independent Interpretation I performed an independent interpretation of an: EKG Interpretation: EKG at 12:28 shows normal sinus rhythm at 87 beats per minute. It is a normal EKG. No old EKGs. Discharge Plan Discharge Clinical Impression: Syncope, Nausea, Patient Disposition: Home, Self-Care Additional Instructions: Your testing in the emergency room today seems reassuring. Please plan on following up with your primary care doctor and your OBGYN doctor this week. Certainly call your OBGYN doctor on Wednesday if you are not feeling better. If you feel significantly worse please return to the emergency room for further evaluation. Prescriptions: No Action prednisone 20 mg tablet 20 mg PO BID Qty: 6 0RF cefuroxime axetil 500 mg tablet 500 mg PO BID 10 Days Qty: 20 0RF azithromycin [Zithromax] 250 mg tablet 250 mg PO DAILY 4 Days Qty: 4 0RF Rx Instructions: start on day 2 of therapy oxycodone 5 mg capsule 5 mg PO BID PRN (Reason: pain) Qty: 8 0RF Rx Instructions: Patient can partially filled prescription upon request. valacyclovir 1 gram tablet 1,000 mg PO BID Qty: 14 0RF metronidazole [Vandazole] 0.75 % (37.5mg/5 gram) gel 1 appful vaginal DAILY 5 Days Qty: 70 0RF PNV no.95-ferrous fumarate-FA [] 28 mg iron- 800 mcg tablet 1 tab PO DAILY Qty: 30 0RF Referrals: [facility] [Outside] Ivelisse Herrera MD [Primary Care Provider, Internal Medicine] Interventions: ED Discharge Assessment Last Done: 08/18/25 16:52 Discharge Date/Time: 08/18/25 16:52 Print Language: Portuguese
--- OUTSIDE RECORDS SUMMARY | 2025-08-18 13:56 | XMS_ITS | Clinical Summary ---
Author Organization [facility] Address [address] [place] [address] Care Team Providers Care Chief Lock Tender Operator Name Role Phone Unavailable Primary Care Provider [...] Cervical Cancer Screening: P ap Smear 2018 Depression Screening 11/22/2024 COVID-19 Vaccine (1 - 2023-2 5 season) 2025 Influenza Vaccine (#1) 2025 RSV Immunization Adult Patie nts (1 - 1-dose 75+ series) 2072 HIB Vaccines Aged Out No longer eligi [...]
--- OUTSIDE RECORDS SUMMARY | 2025-08-18 13:56 | XMS_ITS | Encounter Summary ---
Author Organization [employer] Address [address] [place] [address] Care Team Providers Care Front Load Trash Truck Driver Name Role Phone Tara Lynch MD Primary Care Provide r Reason for Visit * Reason Comments Med Refill Encounter Details Date Type Department Care Team (Late st Contact Info) Description 12/10/2022 Refill [facility] [address] [place] [address] Caryl Valverde MD [address] [place] [address] Social History Tobacco Use Types Packs/Day Years [...] on filedocumented in this encounter Care Teams Front Load Trash Truck Driver Relationship Specialty Start Date End Date Tara Lynch MD [address] [place] [address] PCP - General Family Medicine 11/16/18 11/25/23 documented as of this encounter
--- OUTSIDE RECORDS SUMMARY | 2025-08-18 13:56 | XMS_ITS | Encounter Summary ---
Author Organization [facility] Address [address] [place] [address] Phone Care Team Providers Care Brownell Operator Name Role Phone Ivelisse Herrera MD Primary Care Provider Reason for Visit * Reason Onset Date Comments OB Fainting 08/17/2025 Encounter Details Date Type Department Care Team (Late st Contact Info) Description 08/17/2025 Telephone [facility] [address] [place] [address] [place] [address] Elosie Bowser, MICAH [address] [place] [address] [email or web address] OB Fainting Social History Tobacco Use Types Packs/Day Years [...] your housing situation today? I have saad garcia 08/17/2025 How many times have you move [...] 2:47 PM EDT Krystyna Smith, RN * [place] Suicide Severity Rating Scale (Screener/Recent Self-Report) Question Answer Date of Assessment Author 1. Wish to be (Past 1 Month) No 025 2:47 PM EDT Krystyna Garcia, RN 2. Non-Specific Active Suici majo Thoughts (Past 1 Month) No 08/17/2025 2:47 PM EDT Krystyna Garcia, RN 6. Suicidal Behavior (Lifetime) No 2:47 PM EDT Krystyna Garcia, RN documented as of this encounter Progress Notes * Albert Cortes LPN - 08/17/2025 2:49 PM EDT Per chart review Pt might be in the ED. Notes not yet started. * Eloise Bowser LPN - 08/17/2025 2:42 PM EDT Pt left VM on Triage line, stated she fainted twice today, unsure if she should go to ED or not. Attempted to reach pt., LMTCB to discuss. documented in this encounter Plan of Treatment Upcoming Encounters Date Type Department Care Team (Late st Contact Info) Description 09/11/2025 10:30 AM EDT Routine [facility] [address] [place] [address] [place] [address] Katja Santillan [address] [address] 10/08/2025 10:10 AM EST Appointment [facility] [address] [place] [address] Krystyna Posey [address] [address] 10/08/2025 11:10 AM EST Routine [facility] [address] [place] [address] Krystyna Posey CNM [address] [facility], [address] [place] [address] [email or web address] documented as of this encounter Visit Diagnoses Not on filedocumented in this encounter Care Teams Brownell Operator Relationship Specialty Start Date End Date Ivelisse Herrera MD [address] [place] [address] [place] [address] PCP - General Internal Medicine 03/01/24 documented as of this encounter Additional Source Comments The information contained in this document represents components of the legal health record. It is not the complete legal health record.[facility]
--- OUTSIDE RECORDS SUMMARY | 2025-08-18 13:57 | XMS_ITS | Encounter Summary ---
Author Organization [employer] Address [address] [place] [address] Care Team Providers Care Tear Down Worker Name Role Phone Traa Lynch MD Primary Care Provide r Encounter Details Date Type Department Care Team (Late st Contact Info) Description 01/01/[address] [facility] [address] [place] [address] Nadya Singer LPN Social History Tobacco Use Types Packs/Day Years [...] on filedocumented in this encounter Care Teams Tear Down Worker Relationship Specialty Start Date End Date Tara Lynch MD [address] [place] [address] PCP - General Family Medicine 11/16/18 11/25/23 documented as of this encounter
--- OUTSIDE RECORDS SUMMARY | 2025-08-18 13:57 | XMS_ITS | Clinical Summary ---
Author Organization [employer] Address [address] [facility] [address] [place] [address] Care Team Providers Care Middle School History Teacher Name Role Phone Unavailable Primary Care Provider Unavailabl e Medications ferrous sulfate 325 (65 Fe) MG tabletIndication s:Iron deficiency anemia, unspecified iron deficiency anemia type TAKE 1 TABLET BY MOUTH EVERY OTHER DAY 45 tablet 01/01/2023 Active Social History Tobacco Use Types Packs/Day Years Used Date Smoking Tobacco: Never Assessed Comments Unknown Sex and Gender Information Value Date Recorded Sex Assigned at Female 09/21/2022 10:18 AM EDT Legal Sex Female 10:18 AM EDT Gender Identity Female 09/21/2022 10:18 AM EDT Sexual Orientation Straight 09/21/2022 10 :18 AM EDT Last Filed Vital Signs Vital Sign Reading Time Taken Comments Blood Pressure 105/72 07/23/2022 12:09 AM EDT Pulse 89 07/23/2022 12:09 AM EDT Temperature - - Respiratory Rate - - Oxygen Saturation - - Inhaled Oxygen Concentration - - Weight 83.4 kg (183 lb 12.8 oz) 022 12:09 AM EDT Height 160.7 cm (5' 3.25 ) 07/23/2022 1 2:09 AM EDT Body Mass Index 32.3 07/23/2022 12:09 AM EDT Plan of Treatment Health Maintenance Due Date Last Done Comments Depression Screening 1997 Disability Screening 1997 Alcohol/Substance Use Screening 2009 Tobacco Screening 2009 Family Planning (PISQ) 2012 Pap Smear 05/20/2025 05/20/2022 COVID-19 Vaccine ( season) 2025 08/05/2021 Influenza Vaccine (#1) 2025 7, 10/29/2016, 09/12/2014, Additional history exists DTaP/Tdap/Td Vaccines (8 - Td or Tdap) 12/20/2030 12/20/2020, 08/28/2009, 07/20/2001, Additional history exists Zoster Vaccines (1 of 2) 2047 RSV Patients and Patients Aged 60 years or older (1 - 1-dose 75+ series) 2072 Hepatitis B Vaccines Completed 02/12/1998, 1997, 1997 HIB Vaccines Completed 12/06/1998, 01/21, 1997, Additional history exists IPV Vaccines Completed 07/20/2001, 01/21, 1997, Additional history exists Meningococcal Vaccine Aged Out 08/28/2009 No oxana long eligible based on patient's age to complete this topic HPV Vaccines Completed 10/01/2011, 05/2009, 09/22/2007 Hepatitis A Vaccines Completed 09/12/2014, 02/28/20 14 Meningococcal B Vaccine Aged Out No l onger eligible based on patient's age to complete this topic Pneumococcal Vaccine: Pediatrics (0 to 5 Years) and At-Risk Patients (6 to 49) Years Aged Out No longer eligible based on patient's age to complete this topic RSV under 20 months Aged Out No longe r eligible based on patient's age to complete this topic Rotavirus Vaccines Aged Out No longer eligible based on patient's age to complete this topic Procedures Procedure Name Priority Date/Time Associated Diagnosis Comments THINPREP IMAGING SYSTEM PAP Routine 05/20/2022 2:43 PM EDT from Last 3 Months or Most Recently Relevant to Health Maintenance Results * THINPREP TIS PAP (05/20/2022 2:43 PM EDT) Clinical Information: None given [facility] COMMENT SEE COMMENT [facility] Comment: EXPLANATORY NOTE: The Pap is a screening test for cervical cancer. It is not a diagnostic test and is subject to false negative and false positive results. It is most reliable when a satisfactory sample, regularly obtained, is submitted with relevant clinical findings and history, and when the Pap result is evaluated along with historic and current clinical information. COMMENT: This Pap test has been evaluated with computer assisted technology. [facility] Clinical Product Manager : SEE COMMENT [facility] Comment: [facility], CT(ASCP) CT screening location: [place] [address] Infection Shift in vaginal vishal suggestive of bacterial vaginosis. [facility] Interpretation/R esult: Negative for intraepithelial lesion or malignancy. [facility] LMP: IRR NEX [facility] Prev. BX: NONE GIVEN [facility] Prev. PAP: 2-3 YRS [facility] Review Clinical Product Manager : SEE COMMENT [facility] Comment: [facility], CT(ASCP) CT screening location: [place] [address] SOURCE: None given [facility] Statement Of Adequacy: SEE COMMENT [facility] Comment: Satisfactory for evaluation. Endocervical/transformation zone component present. 05/20/2022 2:43 PM EDT us Lety Tom CNM LAB PATHOLOGY ORDERABLES Final Result [facility] [address] from Last 3 Months or Most Recently Relevant to Health Maintenance
--- NOTE | 2025-08-18 14:19 | PC.NURSE ---
this RN covering primary RN, automotive maintenance technician alerted that patient was feeling a little light headed post blood draw. patient noted to be in semi fowlers, VSS at this time, poc 84. ice pack applied to the back of patients neck for comfort, reassurance given, family at bedside
[2025-08-18 14:29] LABS: Glucose, Whole Blood 84 mg/dL (60-115)
[2025-08-18 14:31] LABS: MANUAL DIFF FLAG NO
[2025-08-18 14:35] LABS: Appearance Urine Clear; Glucose Urine UA Negative (Negative); PH 7.5 (5.0-9.0); Specific Gravity - Urine 1.015 (1.005-1.025); UMIC TRIGGER UACC YES
[2025-08-18 14:38] LABS: Hematocrit 32.3 % (37.0-47.0); Hemoglobin 11.5 g/dl (12.0-16.0); Imm Gran Abs Auto 0.01 X10*3/uL (0.00-0.03); Imm Gran Pct Auto 0.1 % (0.0-0.4); Lymphocytes Absolute Auto 2.2 X10*3/uL (1.2-4.9); Mean Corpuscular HGB Conc 35.6 g/dl (31.0-35.0); Mean Corpuscular Hemoglobin 30.9 pg (27.0-33.0); Mean Corpuscular Volume 86.8 fL (80.0-98.0); NRBC Abs Auto 0.000 X10*3/uL (0.0-0.012); NRBC Pct Auto 0.0 /100WBC (0.0-0.2); Platelet Count 271 X10*3/uL (160-400); Red Blood Count 3.72 X10*6/uL (4.20-5.50); White Blood Count 9.5 X10*3/uL (4.8-10.8)
[2025-08-18 14:53] LABS: Alanine Aminotransferase 10 U/L (0-31); Albumin Level 3.7 g/dL (3.5-5.0); Alkaline Phosphatase 58 U/L (39-117); Anion Gap 10 (12-20); Aspartate Amino Transferase 19 U/L (5-31); Blood Urea Nitrogen 4 mg/dL (9-16); Calcium 9.0 mg/dL (8.4-10.2); Carbon Dioxide 21 mmol/L (22-29); Chloride 110 mmol/L (96-108); Creatinine Clr Calc Pharmacy 90.4; Estimated Glomerular Filt Rate > 60; Magnesium 1.8 mg/dL (1.6-2.6); Potassium 3.8 mmol/L (3.3-5.1); Sodium 137 mmol/L (135-145); Total Protein 6.7 g/dL (6.5-8.0)
[2025-08-18 14:54] LABS: COVID-19 Test Negative (Negative); IDNOW Serial# 152EDE1D; IDNOW Serial# 16C4AD1C; Influenza B2 Negative (Negative)
[2025-08-18 15:24] VITALS: BP 102/72; PULSE 70; RESP 16; O2SAT 99
[2025-08-18] MEDS: Lactated Ringers 1,000 ML 999 ML IV (15:26)
--- NOTE | 2025-08-18 15:30 | PC.NURSE ---
MD at bedside for OB US. Heart beating visualized. Pt reports feeling better but would like IVF. PIV placed and LR given per MAR.
[2025-08-18 15:42] VITALS: BP 106/65; PULSE 78; RESP 20; TEMP 36.8; O2SAT 100
[2025-08-18 16:52] VITALS: BP 106/65; PULSE 78; RESP 20; TEMP 36.8; O2SAT 100
== END 2025-08-18 16:52 | disposition home or self-care (01) ==
PROVIDERS: Registered Nurse Emergency; Emergency Provider Emergency Medicine; PCP Internal Medicine
DX: O21.0 Mild hyperemesis gravidarum (principal); R55 Syncope and collapse; Z3A.13 13 weeks gestation of pregnancy; Z79.899 Other long term (current) drug therapy; Z11.52 Encounter for screening for COVID-19
CPT/HCPCS: 80053; 81001; 82947; 83735; 84702; 85025; 87502; 87635; 93005; 99283; 99285; J7120

== ENCOUNTER → 2025-08-18 12:25 | Outpatient (BNV) | payer MEDICAID, SELFPAY | PROVIDERS: Emergency Provider Emergency Medicine; PCP Internal Medicine; Visit Provider Internal Medicine Cardiovascular Disease | DX: R55 Syncope and collapse (principal) | CPT/HCPCS: 93010 ==